=== PATIENT | male | born 1930 | race Caucasian/White ===

== ENCOUNTER 2016-03-28 12:54 | Inpatient (IN) | payer MEDICARE ==
[~2016-03-28] VITALS: Ht 172.7 cm; Wt 113.5 kg
[~2016-03-28 12:54] MED LIST: DONE5TAB14; DULO20 PO; LORTA5 PO; NAME5TAB2 PO
[2016-03-28 12:58] VITALS: BP 119/58; PULSE 92; RESP 20; TEMP 97.8; O2SAT 99
--- NOTE | 2016-03-28 13:20 | PD ---
HPI Chief Complaint: GI Complaint Time Seen by Provider: 13:20 Travel History International Travel<30 days: No Contact w/Intl Traveler<30days: No Traveled to known affect area: No History of Present Illness HPI 85-year-old male with history of glaucoma, peripheral neuropathy, anxiety, BPH, presents to emergency department for evaluation. Patient states for the last week he has been having some left-sided chest pain. He states if he "really thought about it" he noticed it there. He denies any recent illnesses fever or chills but when he woke up this morning he did not feel well. He had a small amount of diarrhea. He states couple hours later he had another "diarrhea attack." He states that he passed out on the way to the restroom but " recovered quickly." He then had a loose bowel movement that was mostly mary red blood. Patient states he has never had this happen before. He doesn't have a history of colitis or diverticulitis. He has had a colonoscopy within the last 6 months without any concerning findings. His daughter is with him and believes that the syncopal episode was because he is misusing his anxiolytics. She also believes that he he has not been honest about the bloody stool. I did not confront the patient on this. PFSH Past Medical History Medical History: Denies Significant Hx Social History Alcohol Use: No Tobacco Use: No Substance Use: No Allergies-Medications (Allergen,Severity, Reaction): Coded Allergies: No Known Allergies (Unverified , 03/28/16) Reported Meds & Prescriptions Reported Meds & Active Scripts Active Reported Lortab 5/325 Tab (Hydrocodone-Acetaminophen) Unknown Strength Tab Unknown Dose PO Q4H PRN Donepezil HCl (Donepezil Hydrochloride) Unknown Strength Tab Unknown Dose Cymbalta (Duloxetine HCl) Unknown Strength Cap Unknown Dose PO DAILY Namenda (Memantine) Unknown Strength Tab Unknown Dose PO BID Review of Systems Except as stated in HPI: all other systems reviewed are Neg Physical Exam Narrative GENERAL: Well-nourished male patient, lying in bed, speaking to me with his eyes closed, in no acute distress SKIN: Warm and dry. Pallor but warm HEAD: Atraumatic. Normocephalic. EYES: Pupils equal and round. No scleral icterus. No injection or drainage. ENT: No nasal bleeding or discharge. Mucous membranes pink and moist. NECK: Trachea midline. No JVD. CARDIOVASCULAR: Elevated rate and rhythm. No murmur appreciated. RESPIRATORY: No accessory muscle use. Clear to auscultation. Breath sounds equal bilaterally. GASTROINTESTINAL: Abdomen soft, non-tender, nondistended. Hepatic and splenic margins not palpable. MUSCULOSKELETAL: No obvious deformities. No clubbing. No cyanosis. No edema. NEUROLOGICAL: Awake and alert. No obvious cranial nerve deficits. Motor grossly within normal limits. Normal speech. Data Data Last Documented VS Vital Signs Date Time Temp Pulse Resp B/P Pulse Ox O2 Delivery O2 Flow Rate FiO2 03/28/16 12:58 97.8 92 20 119/58 99 Room Air Orders Electrocardiogram (03/28/16 13:13) Complete Blood Count With Diff (03/28/16 13:13) Comprehensive Metabolic Panel (03/28/16 13:13) Prothrombin Time / Inr (Pt) (03/28/16 13:18) Act Partial Throm Time (Ptt) (03/28/16 13:18) Urinalysis - C+S If Indicated (03/28/16 13:18) Type And Screen (03/28/16 13:18) Ckmb (Isoenzyme) Profile (03/28/16 13:18) Magnesium (Mg) (03/28/16 13:18) Troponin I (03/28/16 13:18) Chest, Single Ap (03/28/16 13:18) MDM Medical Decision Making Medical Screen Exam Complete: Yes Emergency Medical Condition: Yes Medical Record Reviewed: Yes Differential Diagnosis Colitis versus GI bleed versus hemorrhoids versus symptomatic anemia versus syncopal episode versus vasovagal response Narrative Course 85-year-old male presents to emergency department. Workup was initiated in triage. Once a medical bed becomes available, patient will be transferred and care assumed by that patient Condition: Stable Iman Zavala Mar 28, 2016 13:20
[2016-03-28 13:52] LABS: AUTOMATED NEUTROPHIL # 12.8 TH/MM3 (1.8-7.7); BASOPHIL # 0.1 TH/MM3 (0-0.2); BASOPHIL % 0.6 % (0.0-2.0); EOSINOPHIL % 0.3 % (0.0-4.0); HEMATOCRIT 38.5 % (39.0-51.0); HEMO FLAGS DIFF FINAL; LYMPH % 6.2 % (9.0-44.0); LYMPHOCYTE # 0.9 TH/MM3 (1.0-4.8); MEAN CELL VOLUME 85.3 FL (80.0-100.0); MEAN CORPUSCULAR HEMOGLOBIN 26.5 PG (27.0-34.0); MEAN CORPUSCULAR HGB CONC 31.1 % (32.0-36.0); NEUT % 90.9 % (16.0-70.0); PLATELET COUNT 225 TH/MM3 (150-450); RED BLOOD COUNT 4.52 MIL/MM3 (4.50-5.90); RED CELL DISTRIBUTION WIDTH 14.6 % (11.6-17.2); WHITE BLOOD COUNT 14.1 TH/MM3 (4.0-11.0)
[2016-03-28 14:06] LABS: APTT (PATIENT) 23.8 SEC (24.3-30.1); PROTHROMBIN TIME - PATIENT 11.3 SEC (9.8-11.6)
[2016-03-28 14:17] LABS: ANION GAP 11 MEQ/L (5-15); AST (GOT) 10 U/L (15-37); BICARBONATE 21.5 MEQ/L (21.0-32.0); BLOOD UREA NITROGEN 29 MG/DL (7-18); CHLORIDE 108 MEQ/L (98-107); GLOMERULAR FILTRATION RATE 38 ML/MIN (>89); POTASSIUM 4.7 MEQ/L (3.5-5.1); SODIUM (NA) 140 MEQ/L (136-145)
[2016-03-28 14:18] LABS: MAGNESIUM 2.3 MG/DL (1.5-2.5)
[2016-03-28 14:20] LABS: ALKALINE PHOSPHATASE 100 U/L (45-117); ALT (GPT) 14 U/L (12-78); TOTAL BILIRUBIN ADULT 0.7 MG/DL (0.2-1.0)
[2016-03-28 14:21] LABS: CREATINE KINASE 93 U/L (39-308)
--- NOTE | 2016-03-28 14:49 | PD ---
Data Data Last Documented VS Vital Signs Date Time Temp Pulse Resp B/P Pulse Ox O2 Delivery O2 Flow Rate FiO2 03/28/16 12:58 97.8 92 20 119/58 99 Room Air Orders Electrocardiogram (03/28/16 13:13) Complete Blood Count With Diff (03/28/16 13:13) Comprehensive Metabolic Panel (03/28/16 13:13) Prothrombin Time / Inr (Pt) (03/28/16 13:18) Act Partial Throm Time (Ptt) (03/28/16 13:18) Urinalysis - C+S If Indicated (03/28/16 13:18) Type And Screen (03/28/16 13:18) Ckmb (Isoenzyme) Profile (03/28/16 13:18) Magnesium (Mg) (03/28/16 13:18) Troponin I (03/28/16 13:18) Chest, Single Ap (03/28/16 13:18) Labs Laboratory Tests Test 03/28/16 03/28/16 13:20 13:30 Sodium Level 140 MEQ/L Potassium Level 4.7 MEQ/L Chloride Level 108 MEQ/L Carbon Dioxide Level 21.5 MEQ/L Anion Gap 11 MEQ/L Blood Urea Nitrogen 29 MG/DL Creatinine 1.73 MG/DL Estimat Glomerular Filtration 38 ML/MIN Rate Random Glucose 196 MG/DL Calcium Level 8.6 MG/DL Total Bilirubin 0.7 MG/DL Aspartate Amino Transf 10 U/L (AST/SGOT) Alanine Aminotransferase 14 U/L (ALT/SGPT) Alkaline Phosphatase 100 U/L Total Protein 6.0 GM/DL Albumin 3.2 GM/DL White Blood Count 14.1 TH/MM3 Red Blood Count 4.52 MIL/MM3 Hemoglobin 12.0 GM/DL Hematocrit 38.5 % Mean Corpuscular Volume 85.3 FL Mean Corpuscular Hemoglobin 26.5 PG Mean Corpuscular Hemoglobin 31.1 % Concent Red Cell Distribution Width 14.6 % Platelet Count 225 TH/MM3 Mean Platelet Volume 8.7 FL Neutrophils (%) (Auto) 90.9 % Lymphocytes (%) (Auto) 6.2 % Monocytes (%) (Auto) 2.0 % Eosinophils (%) (Auto) 0.3 % Basophils (%) (Auto) 0.6 % Neutrophils # (Auto) 12.8 TH/MM3 Lymphocytes # (Auto) 0.9 TH/MM3 Monocytes # (Auto) 0.3 TH/MM3 Eosinophils # (Auto) 0.0 TH/MM3 Basophils # (Auto) 0.1 TH/MM3 CBC Comment DIFF FINAL Differential Comment Prothrombin Time 11.3 SEC Prothromb Time International 1.0 RATIO Ratio Activated Partial 23.8 SEC Thromboplast Time Magnesium Level 2.3 MG/DL Total Creatine Kinase 93 U/L Troponin I LESS THAN 0.02 NG/ML Blood Type A POSITIVE Antibody Screen NEGATIVE MDM Supervised Visit with [facility]: Yes Narrative Course I, Dr. Alvares, have reviewed the advance practice practitioner's documentation and am in agreement, met with the patient face to face, made the diagnosis, and the medical decision making was done by me. See her note for further details. Briefly this is an 85-year-old male with history of iron deficiency anemia, neurofibromatosis, peripheral neuropathy, here for evaluation of diarrhea, hematochezia, and syncope. Patient reports having a couple episodes of diarrhea this morning. He was on his way to the restroom when he had a syncopal episode. He denies sustaining any injuries during this time. He denies having chest pain or dyspnea. He then went to the restroom and had a large bloody bowel movement. According to his records, the patient is seen primarily by Dr. Berry who recently retired. He has a history of iron deficiency anemia and GI bleed. Patient reports having a colonoscopy within the last 6 [address] surgeon [address] Garcia and reports that it was normal. No history of abdominal surgeries. He denies abdominal pain. No rectal pain. He is not on any antiplatelets or anticoagulants. On exam the patient is awake and alert. There are no focal neurologic findings. Abdominal exam is benign. Rectal exam shows heme positive brown stool, no mary blood, no masses, no hemorrhoids, no fissures. Vital signs show slight tachycardia with a heart rate of 92, blood pressure 119/58, pulse ox 99% on room air, oral temp of 97.8F. CBC shows WBC 14, hemoglobin 12, hematocrit 38.5, platelets 225 , neutrophils 90%. Patient's baseline H&H is around 14/45. BMP is remarkable for BUN 29, creatinine 1.73, GFR 38 which is around his baseline, random glucose 196. Cardiac enzymes are negative. Coags are normal. EKG shows sinus , rate 79, normal axis, normal intervals, no acute ischemic abnormality. Given syncopal episode with hematochezia and heme positive/brown stool on exam with a slightly lower hemoglobin than his baseline, the patient will be admitted for overnight observation for serial H&H and likely GI/colorectal consultation. Case discussed with hospitalist Dr. Kong who will admit the patient to his service. Diagnosis Primary Impression: Syncope Qualified Code: R55 - Syncope, unspecified syncope type Additional Impression: Hematochezia Admitting Information Admitting Physician Requests: Observation Condition: Stable Simba Alvares MD Mar 28, 2016 14:49
[2016-03-28] MEDS ORDERED: SODIUM CHLOR 0.9% 1000 ML INJ 1,000 ML IV SCH (15:06)
[2016-03-28] MEDS ORDERED: ONDANSETRON HCL 4 MG/2 ML VIAL IV PRN (15:15)
[2016-03-28] MEDS ORDERED: SODIUM CHLORIDE 0.9% FLUSH 5 ML FLUSH IV PRN (15:15)
[2016-03-28] MEDS ORDERED: ALLO300T2 PO (15:26)
[2016-03-28] MEDS ORDERED: AZOP1SUS EACH EYE (15:56)
[2016-03-28] MEDS ORDERED: PRED1SUS LEFT EYE (15:56)
[2016-03-28] MEDS ORDERED: POLY99.0 EACH EYE (15:56)
[2016-03-28] MEDS ORDERED: MAGN400T2 PO (15:56)
[2016-03-28] MEDS ORDERED: FERR325T PO (15:56)
[2016-03-28] MEDS ORDERED: DONE10TA7 PO (15:56)
[2016-03-28] MEDS ORDERED: [UNRECOGNIZED DRUG - OTHER] PO (15:56)
[2016-03-28] MEDS ORDERED: DICL1GEL TOPICAL (15:56)
[2016-03-28] MEDS ORDERED: OMEG100037 PO (15:56)
[2016-03-28] MEDS ORDERED: MULTTAB23 PO (15:56)
[2016-03-28] MEDS ORDERED: TRAV0.00 EACH EYE (15:56)
[2016-03-28] MEDS ORDERED: GABA300C5 PO (15:56)
[2016-03-28] MEDS ORDERED: COMB0.2S EACH EYE (15:56)
[2016-03-28] MEDS ORDERED: ALPR0.5T3 PO (15:56)
[2016-03-28] MEDS ORDERED: NORC5TAB PO (15:56)
[2016-03-28] MEDS ORDERED: CYMB60CA PO (15:56)
[2016-03-28] MEDS ORDERED: MEMA28CA PO (15:56)
[2016-03-28] MEDS ORDERED: LIPI20TA PO (15:56)
[2016-03-28] MEDS ORDERED: VITA100T5 PO (15:56)
[2016-03-28] MEDS ORDERED: ALBUAER3 INH (15:56)
[2016-03-28] MEDS ORDERED: CALC500T35 PO (15:56)
[2016-03-28] MEDS ORDERED: ASPI1TAB69 PO (15:56)
[2016-03-28] MEDS ORDERED: LOTE0.5S EACH EYE (15:56)
[2016-03-28] MEDS: PANTOPRAZOLE SODIUM 40 MG VIAL IV SCH (15:58)
--- NOTE | 2016-03-28 16:55 | RADRPT ---
EXAM DATE/TIME: 03/28/2016 14:30 [facility] COMPARISON: No previous studies available for comparison. INDICATIONS : Chest pain. Pt. states he has blood in stool, coughing up phlegm and fainting. MEDICAL HISTORY : None. SURGICAL HISTORY : None. ENCOUNTER: Initial ACUITY: 1 day PAIN SCORE: 0/10 LOCATION: Bilateral chest FINDINGS: The heart is normal in size. There are chronic interstitial changes within the pulmonary parenchyma. The visualized bony structures are grossly intact. CONCLUSION: 1. Chronic appearing interstitial changes. No acute abnormality identified. Eliud Roberts MD on March 28, 2016 at 15:37 Board Certified Radiologist. This report was verified electronically.
--- NOTE | 2016-03-28 17:31 | PD.CONS ---
HPI History of Present Illness This is a 85 year old male patient who came to the ER for evaluation of blood in stool. He woke up around 715am this morning and states that he had a normal bowel movement. Shortly after, he states he did not feel well and thought he would go have another bowel movement. He reports that he may have fainted or fell on the way. He believes that he did lose consciousness for a short time, but came to and then rushed to the bathroom to move his bowels. This time, he noticed that there was a large amount of red blood mixed within his stool. This alarmed him and therefore came to the ER for further evaluation. No nausea /vomiting, or heartburn. When asked about abdominal pain, he stated "lets just say no, it's not significant and I don't want to go over this again." He then reports that he has had an intermittent ache under his left rib cage that is more muscular skeletal. He does not take any blood thinners. He does not take advil or aleve. He was previously evaluated with EGD (11/07/10) gastritis in the antrum, normal EGD otherwise. Pathology with chronic gastropathy mild, negative for intestinal metaplasia, H. Pylori is negative. Colonoscopy (08/16/09 )---> cecum with normal ileocecal valve, no polyps, diverticular disease moderate with no inflammation, anorectal exam. He reports that he was also seen by Dr. Garcia about 6 months ago, but he does not know what he did. ( Anna Martinez) PFSH Past Medical History GERD Depression Anemia History of GI bleeding Gout Headache Hyperlipidemia lipidemia Glaucoma Osteoarthritis Von Recklinghausen's disease Hyperlipidemia Past Surgical History Cataract surgery EGD Colonoscopy Sigmoidoscopy (Anna Martinez) Coded Allergies: No Known Allergies (Unverified , 03/28/16) Medications Allergies Coded Allergies Type Severity Reaction Last Updated Verified No Known Allergies 03/28/16 No Active Scripts Medications Dose Route/Sig Days Date Category Lotemax Opth Drops (Loteprednol Etabonate) 0.5 % Soln 1 Drop EACH EYE QID PRN 03/28/16 Reported Proair Hfa 8.5 GM Inh (Albuterol Sulfate) 90 Mcg/Act Aer 2 Puff INH Q4-6H PRN 03/28/16 Reported Artificial Tears Opth Drops (Polyvinyl Alcohol) 1.4% Soln 1-2 Drop EACH EYE DIRECTED PRN 03/28/16 Reported [Redi-Calm] 1 Tab PO 1-2 TIMES A DAY PRN 03/28/16 Reported Aspirin 81 Mg Tabdr 81 Mg PO DAILY 03/28/16 Reported Namenda Xr (Memantine) 28 Mg Caper 28 Mg PO DAILY 03/28/16 Reported Multi For Him 50+ (Multiple Vitamins W/ Minerals) 1 Tab Tab 1 Tab PO DAILY 03/28/16 Reported Voltaren Topical (Diclofenac Topical) 1% Gel 1 Applic TOPICAL DIRECTED PRN 03/28/16 Reported Vitamin C (Ascorbic Acid) 100 Mg Tab 100 Mg PO DAILY 03/28/16 Reported Travatan Z Opth Drops (Travoprost) 0.004 % Soln 1 Drop EACH EYE HS 03/28/16 Reported Pred Forte Opth Drops (Prednisolone Acetate Opth Drops) 1% Susp 1 Drop LEFT EYE QID 03/28/16 Reported Magnesium Oxide 400 Mg Tab 400 Mg PO DAILY 03/28/16 Reported Lipitor (Atorvastatin Calcium) 20 Mg Tab 20 Mg PO DAILY 03/28/16 Reported [place] (Hydrocodone-Acetaminophen) 5-325 mg Tab 1 Tab PO Q6H PRN 03/28/16 Reported Gabapentin 300 Mg Cap 300 Mg PO TID 03/28/16 Reported Fish Oil 1000 mg ([place]-3 Fatty Acids) 1 Cap Cap 1,000 Mg PO DAILY 03/28/16 Reported Ferrous Sulfate 325 Mg Tab 325 Mg PO DAILY 03/28/16 Reported Donepezil 10 Mg Tab 10 Mg PO HS 03/28/[address] (Duloxetine HCl) 60 Mg Capdr 60 Mg PO DAILY 03/28/16 Reported Combigan Opth Drops (Brimonidine-Timolol Opth Drops) 0.2-0.5% Soln 1 Drop EACH EYE Q12HR 03/28/16 Reported Calcium (Oyster Shell) 500 Mg Tab 500 Mg PO DAILY 03/28/16 Reported Azopt Opth Drops (Brinzolamide) 1% Susp 1 Drop EACH EYE TID 03/28/16 Reported Alprazolam 0.5 Mg Tab 0.5 Mg PO Q6H PRN 03/28/16 Reported Allopurinol 300 Mg Tab 300 Mg PO DAILY 03/28/16 Reported Family History He denies any family hx of esophageal, gastric, or colorectal cancer Social History No tobacco, ETOH, or illicit drug use. (MartinezAnna) Review of Systems Constitutional: COMPLAINS OF: Fatigue, DENIES: Change in appetite Respiratory: DENIES: Shortness of breath Cardiovascular: DENIES: Chest pain Gastrointestinal: COMPLAINS OF: Abdominal pain, Bloody stools, Diarrhea, DENIES: Black stools, Constipation, Nausea, Vomiting, Anorexia, Swelling of Abdomen, Heartburn, Hematemesis Musculoskeletal: COMPLAINS OF: Joint pain Integumentary: DENIES: Abnormal pigmentation Hematologic/lymphatic: DENIES: Bruising Neurologic: DENIES: Headache Psychiatric: DENIES: Confusion (Anna Martinez) GI Exam Vitals I&O Vital Signs Date Time Temp Pulse Resp B/P Pulse Ox O2 Delivery O2 Flow Rate FiO2 03/28/16 12:58 97.8 92 20 119/58 99 Room Air Laboratory Test 03/28/16 03/28/16 13:20 13:30 Sodium Level 140 MEQ/L Potassium Level 4.7 MEQ/L Chloride Level 108 MEQ/L Carbon Dioxide Level 21.5 MEQ/L Anion Gap 11 MEQ/L Blood Urea Nitrogen 29 MG/DL Creatinine 1.73 MG/DL Estimat Glomerular Filtration 38 ML/MIN Rate Random Glucose 196 MG/DL Calcium Level 8.6 MG/DL Total Bilirubin 0.7 MG/DL Aspartate Amino Transf 10 U/L (AST/SGOT) Alanine Aminotransferase 14 U/L (ALT/SGPT) Alkaline Phosphatase 100 U/L Total Protein 6.0 GM/DL Albumin 3.2 GM/DL White Blood Count 14.1 TH/MM3 Red Blood Count 4.52 MIL/MM3 Hemoglobin 12.0 GM/DL Hematocrit 38.5 % Mean Corpuscular Volume 85.3 FL Mean Corpuscular Hemoglobin 26.5 PG Mean Corpuscular Hemoglobin 31.1 % Concent Red Cell Distribution Width 14.6 % Platelet Count 225 TH/MM3 Mean Platelet Volume 8.7 FL Neutrophils (%) (Auto) 90.9 % Lymphocytes (%) (Auto) 6.2 % Monocytes (%) (Auto) 2.0 % Eosinophils (%) (Auto) 0.3 % Basophils (%) (Auto) 0.6 % Neutrophils # (Auto) 12.8 TH/MM3 Lymphocytes # (Auto) 0.9 TH/MM3 Monocytes # (Auto) 0.3 TH/MM3 Eosinophils # (Auto) 0.0 TH/MM3 Basophils # (Auto) 0.1 TH/MM3 CBC Comment DIFF FINAL Differential Comment Prothrombin Time 11.3 SEC Prothromb Time International 1.0 RATIO Ratio Activated Partial 23.8 SEC Thromboplast Time Magnesium Level 2.3 MG/DL Total Creatine Kinase 93 U/L Troponin I LESS THAN 0.02 NG/ML Blood Type A POSITIVE Antibody Screen NEGATIVE Physical Examination HEENT: Pupils round and reactive to light; normocephalic; atraumatic; no jaundice. Throat is clear. NECK: Neck is supple, no JVD, no lymphadenopathy. CHEST: Chest is clear to auscultation and percussion. CARDIAC: Regular rate and rhythm with no murmur gallop or rubs. ABDOMEN: Soft, nondistended, nontender; no hepatosplenomegaly; bowel sounds are present in all four quadrants. EXTREMITIES: No clubbing, cyanosis, or edema. SKIN: Normal; no rash; no jaundice. SHOWER ENCLOSURE INSTALLER: No focal deficits; alert and oriented times three. (Anna Martinez) Assessment and Plan Plan ASSESSMENT: - GIB, Hematochezia. Sudden onset of bloody diarrhea earlier this am. Denies n /v/abdominal pain. Denies the use of NSAIDs. EGD (11/07/10) gastritis in the antrum, normal EGD otherwise. Pathology with chronic gastropathy mild, negative for intestinal metaplasia, H. Pylori is negative. Colonoscopy (08/16)---> cecum with normal ileocecal valve, no polyps, diverticular disease moderate with no inflammation, anorectal exam. He reports that he was also seen by Dr. Garcia about 6 months ago, but he does not know what he did. He denies any hx of GIB but this is noted in the EMR. HH 12.0/38.5. PPI - Anemia, acute blood loss. 12.0/38.5. - REENA. Creat. 1.73. - Fall/Syncopal episode. Pt unsure if he tripped or passed out but states he quickly came to. Per primary - Depression, Gout, Hyperlipidemia, Von Recklinghausen's disease (In record) per primary PLAN: - Plan for egd/colonoscopy in am - Obtain consents - NPO after MN - Golytely prep - PPI - Monitor HH - Transfuse as ncessary - Supportive care - Further recommendations to follow based on results of above - Pt seen and examined by Dr. Cao and myself and this note is written on her behalf (Anna Martinez) Physician Comments seen, examined agree with above (Annalee Cao MD) Anna Martinez Mar 28, 2016 17:31 Annalee Cao MD Mar 28, 2016 19:22
--- NOTE | 2016-03-28 18:20 | RADRPT ---
EXAM DATE/TIME: 03/28/2016 16:46 [facility] COMPARISON: No previous studies available for comparison. INDICATIONS : Syncope. MEDICAL HISTORY : Glaucoma. Anemia. SURGICAL HISTORY : Denies significant surgical history. ENCOUNTER: Initial ACUITY: 1 day PAIN SCORE: 0/10 LOCATION: Bilateral neck PEAK SYSTOLIC VELOCITIES (cm/sec): ICA/CCA RATIO: Right: 0.8 Left: 0.6 ICA: Right: 82 Left: 75 CCA: Right: 110 Left: 134 ECA: Right: 112 Left: 81 VERTEBRAL: Right: 48 antegrade Left: 61 antegrade Elevated flow velocities and ICA/CCA ratios have been found to correlate with increased degrees of vessel stenosis, calculated as percentage of diameter relative to a normal segment of distal ICA/CCA FINDINGS: RIGHT CAROTID: No significant stenosis is visualized. Mild plaque is present. The waveforms are within normal limits . LEFT CAROTID: No significant stenosis is visualized. Mild plaque is present. The waveforms are within normal limit s. VERTEBRAL ARTERIES: Antegrade flow is seen in both vertebral arteries. MISCELLANEOUS: None. CONCLUSION: Mild bilateral plaque with no evidence of stenosis. Isaac Nicole MD on March 28, 2016 at 18:17 Board Certified Radiologist. This report was verified electronically.
--- NOTE | 2016-03-28 18:26 | HHI.HP ---
[facility] Physician Kinga Allen MD Admission Diagnosis syncope, hematochezia Diagnoses: Chief Complaint: Bloody stool Travel History International Travel<30 Days: No Contact w/Intl Traveler <30 Da: No Traveled to Known Affected Are: No History of Present Illness This is an 85-year-old male patient with past medical history which includes arthritis, anxiety, cervical stenosis, glaucoma, hyperlipidemia, iron deficiency anemia. Patient presents to the emergency department today he reports this morning when he woke up felt anxious had a bowel movement and went back to bed. Patient woke up again an hour and a half later and on his chaparro to get to the bathroom reports he's not sure if he tripped and fell or passed out. Patient denies loss of consciousness denies hitting his head reports he did hit his right hand small skin tear present. At that time patient noticed he was having incontinent stool therefore proceeded to the toilet which he had bloody bowel movement. Patient reports that there was bright red blood. Patient denies nausea or vomiting does report mild diaphoresis during the episode. Patient then ate breakfast and proceeded to the emergency department for further evaluation and treatment. Patient denies feeling lightheaded or dizzy. Patient denies prior history of GI bleed reports his last colonoscopy was possibly 6 months ago he believes with Dr. Garcia and believes the results were normal. Denies chest pain shortness of breath nausea vomiting fevers chills cough congestion. Review of Systems Other All other systems reviewed and negative except as mentioned in history of present illness. Past Family Social History Past Medical History arthritis, anxiety, cervical stenosis, glaucoma, hyperlipidemia, iron deficiency anemia Past Surgical History Cataract surgery Colonoscopy Reported Medications Lotemax Opth Drops (Loteprednol Etabonate) 0.5 % Soln 1 Drop EACH EYE QID PRN Proair Hfa 8.5 GM Inh (Albuterol Sulfate) 90 Mcg/Act Aer 2 Puff INH Q4-6H PRN Artificial Tears Opth Drops (Polyvinyl Alcohol) 1.4% Soln 1-2 Drop EACH EYE DIRECTED PRN [Redi-Calm] 1 Tab PO 1-2 TIMES A DAY PRN Aspirin 81 Mg Tabdr 81 Mg PO DAILY Namenda Xr (Memantine) 28 Mg Caper 28 Mg PO DAILY Multi For Him 50+ (Multiple Vitamins W/ Minerals) 1 Tab Tab 1 Tab PO DAILY Voltaren Topical (Diclofenac Topical) 1% Gel 1 Applic TOPICAL DIRECTED PRN Vitamin C (Ascorbic Acid) 100 Mg Tab 100 Mg PO DAILY Travatan Z Opth Drops (Travoprost) 0.004 % Soln 1 Drop EACH EYE HS Pred Forte Opth Drops (Prednisolone Acetate Opth Drops) 1% Susp 1 Drop LEFT EYE QID Magnesium Oxide 400 Mg Tab 400 Mg PO DAILY Lipitor (Atorvastatin Calcium) 20 Mg Tab 20 Mg PO DAILY [place] (Hydrocodone-Acetaminophen) 5-325 mg Tab 1 Tab PO Q6H PRN Gabapentin 300 Mg Cap 300 Mg PO TID Fish Oil 1000 mg ([place]-3 Fatty Acids) 1 Cap Cap 1,000 Mg PO DAILY Ferrous Sulfate 325 Mg Tab 325 Mg PO DAILY Donepezil 10 Mg Tab 10 Mg PO HS Cymbalta DR (Duloxetine HCl) 60 Mg Capdr 60 Mg PO DAILY Combigan Opth Drops (Brimonidine-Timolol Opth Drops) 0.2-0.5% Soln 1 Drop EACH EYE Q12HR Calcium (Oyster Shell) 500 Mg Tab 500 Mg PO DAILY Azopt Opth Drops (Brinzolamide) 1% Susp 1 Drop EACH EYE TID Alprazolam 0.5 Mg Tab 0.5 Mg PO Q6H PRN Allopurinol 300 Mg Tab 300 Mg PO DAILY Allergies: Coded Allergies: No Known Allergies (Unverified , 03/28/16) Active Ordered Medications Current Medications Medications (Trade) Dose Ordered Sig/Carrie Route Start Time Stop Time Status Last Admin (NS 1000 ml Inj) 1,000 ml @ 100 mls/hr Q10H IV 03/28/16 15:06 03/29/16 01:05 03/28/16 15:58 (NS Flush) 2 ml UNSCH PRN IV 03/28/16 15:15 (NS Flush) 2 ml BID IV 03/28/16 21:00 (Zofran Inj) 4 mg Q6H PRN IV 03/28/16 15:15 (Protonix Inj) 40 mg DAILY IV 03/28/16 15:15 03/28/16 15:58 Family History He denies any family hx of esophageal, gastric, or colorectal cancer Father of an MD in his 80s Mother secondary to Alzheimer's dementia Social History Patient reports he quit smoking in 1991 Patient reports he drinks loss of wine each evening with his meal Physical Exam Vital Signs Vital Signs Date Time Temp Pulse Resp B/P Pulse Ox O2 Delivery O2 Flow Rate FiO2 03/28/16 12:58 97.8 92 20 119/58 99 Room Air Physical Exam GENERAL: This is a well-nourished, well-developed patient, in no apparent distress. SKIN: Skin tear right hand dorsal aspect and did present. HEAD: Atraumatic. Normocephalic. No temporal or scalp tenderness. EYES: Extraocular motions intact. No scleral icterus. No injection or drainage. CARDIOVASCULAR: Regular rate and rhythm without murmurs, gallops, or rubs. RESPIRATORY: Clear to auscultation. Breath sounds equal bilaterally. No wheezes , rales, or rhonchi. GASTROINTESTINAL: Abdomen soft, non-tender, nondistended. No guarding. MUSCULOSKELETAL: Extremities without clubbing, cyanosis, or edema. No joint tenderness, effusion, or edema noted. No calf tenderness. Negative Homans sign bilaterally. NEUROLOGICAL: Awake and alert. No focal deficits appreciated. Motor and sensory grossly within normal limits. Five out of 5 muscle strength in all muscle groups. Normal speech. Laboratory Laboratory Tests Test 03/28/16 03/28/16 13:20 13:30 Sodium Level 140 Potassium Level 4.7 Chloride Level 108 Carbon Dioxide Level 21.5 Anion Gap 11 Blood Urea Nitrogen 29 Creatinine 1.73 Estimat Glomerular Filtration 38 Rate Random Glucose 196 Calcium Level 8.6 Total Bilirubin 0.7 Aspartate Amino Transf 10 (AST/SGOT) Alanine Aminotransferase 14 (ALT/SGPT) Alkaline Phosphatase 100 Total Protein 6.0 Albumin 3.2 White Blood Count 14.1 Red Blood Count 4.52 Hemoglobin 12.0 Hematocrit 38.5 Mean Corpuscular Volume 85.3 Mean Corpuscular Hemoglobin 26.5 Mean Corpuscular Hemoglobin 31.1 Concent Red Cell Distribution Width 14.6 Platelet Count 225 Mean Platelet Volume 8.7 Neutrophils (%) (Auto) 90.9 Lymphocytes (%) (Auto) 6.2 Monocytes (%) (Auto) 2.0 Eosinophils (%) (Auto) 0.3 Basophils (%) (Auto) 0.6 Neutrophils # (Auto) 12.8 Lymphocytes # (Auto) 0.9 Monocytes # (Auto) 0.3 Eosinophils # (Auto) 0.0 Basophils # (Auto) 0.1 CBC Comment DIFF FINAL Differential Comment Prothrombin Time 11.3 Prothromb Time International 1.0 Ratio Activated Partial 23.8 Thromboplast Time Magnesium Level 2.3 Total Creatine Kinase 93 Troponin I LESS THAN 0.02 Blood Type A POSITIVE Antibody Screen NEGATIVE Result Diagram: 03/28/16 1330 03/28/16 1320 Imaging Last Impressions Chest X-Ray 03/28/16 1318 Signed Impressions: Service Date/Time: Monday, March 28, 2016 14:30 - CONCLUSION: 1. Chronic appearing interstitial changes. No acute abnormality identified. Eliud Roberts MD Assessment and Plan Assessment and Plan gThis is an 85-year-old male patient with past medical history which includes arthritis, anxiety, cervical stenosis, glaucoma, hyperlipidemia, iron deficiency anemia. Process emergency department with reports of mary red blood per rectum. Hemoglobin 12.0 upon arrival. Per ER stool brown but Hemoccult positive GI bleed Anemia hemoglobin 12.1 appears like baseline is around 14 MCV 85.3 Continue Protonix Serial H&H and Consult GI Mechanical fall/rectal bleeding episode Ultrasound carotid arteries Continuous telemetry monitoring Acute on chronic kidney disease creatinine elevated 1.73 dehydration Continue IV fluids Recheck in a.m. Mild leukocytosis white blood cell count 14.1 Recheck in a.m. Asymptomatic afebrile SCDs for DVT prophylaxis for chemical DVT prophylaxis in light of GI bleed Discussed with ER visit provider, RN and patient Written by Pamela Jacobo, acting as scribe for Dr. Kong on 03/28/16 at 18:26. The documentation accurately reflects the work performed [id number] by me on 03/28/16 at 1826. Physician Certification 2 Midnight Certification Type: Admission for Inpatient Services Order for Inpatient Services The services are ordered in accordance with Medicare regulations or non- Medicare payer requirements, as applicable. In the case of services not specified as inpatient-only, they are appropriately provided as inpatient services in accordance with the 2-midnight benchmark. Estimated LOS (days): 3 days is the estimated time the patient will need to remain in the hospital, assuming treatment plan goals are met and no additional complications. Post-Hospital Plan: Home Pamela Jacobo Mar 28, 2016 18:26 Nena Kong MD Mar 28, 2016 21:53
[2016-03-28] MEDS ORDERED: ACETAMINOPHEN/HYDROcodone 325 MG/5 MG TAB PO PRN (18:30)
[2016-03-28] MEDS ORDERED: LOTEPREDNOL OPTH EACH EYE PRN (18:30)
[2016-03-28] MEDS ORDERED: PEG (High)/E-LYTE SOLN 4000 ML BTL PO ONE (19:00)
[2016-03-28 19:24] LABS: HEMATOCRIT 35.1 % (39.0-51.0); REVIEW FLAG FINAL
[2016-03-28 19:43] VITALS: BP 141/63; PULSE 80; RESP 20; O2SAT 99
[2016-03-28] MEDS: ALPRAZolam 0.5 MG TAB PO PRN (20:14)
[2016-03-28] MEDS ORDERED: LOTEPREDNOL EACH EYE PRN (20:30)
[2016-03-28] MEDS ORDERED: NON-FORMULARY DRUG (Travoprost Opth Drops (Travatan Z Opth Drops) 1 DROP) EACH EYE SCH (21:00)
[2016-03-28] MEDS ORDERED: PT:COMBIGAN OPTH SOL EACH EYE SCH (21:00)
[2016-03-28] MEDS ORDERED: NON-FORMULARY DRUG (Brimonidine-Timolol Opth Drops (Combigan Opth Drops) 1 DROP) EACH EYE SCH (21:00)
[2016-03-28] MEDS ORDERED: DONEPEZIL HCL 5 MG TAB PO SCH (21:00)
[2016-03-28] MEDS: LATANOPROST 0.005% OPHT SOLN 2.5 ML BTL EACH EYE SCH ×2 (21:00→21:02)
[2016-03-28] MEDS: prednisoLONE ACETATE 1% OPHT SUSP 5 ML BTL LEFT EYE SCH ×2 (21:00→21:01)
[2016-03-28] MEDS: SODIUM CHLORIDE 0.9% FLUSH 5 ML FLUSH IV SCH (21:03)
[2016-03-28] MEDS: BRINZOLAMIDE EACH EYE SCH (22:27)
[2016-03-28] MEDS: PT:COMBIGAN OPTH SOL EACH EYE SCH (22:29)
[2016-03-28] MEDS ORDERED: TAMS0.4C4 PO (23:57)
[2016-03-29 00:21] VITALS: BP 120/70; PULSE 78; RESP 20; TEMP 98.6; O2SAT 95
[2016-03-29] MEDS ORDERED: ACETAMINOPHEN/HYDROcodone 325 MG/5 MG TAB PO PRN (01:00)
[2016-03-29 03:28] LABS: AUTOMATED NEUTROPHIL # 14.5 TH/MM3 (1.8-7.7); BASOPHIL # 0.1 TH/MM3 (0-0.2); BASOPHIL % 0.4 % (0.0-2.0); HEMATOCRIT 35.1 % (39.0-51.0); HEMO FLAGS DIFF FINAL; LYMPH % 8.8 % (9.0-44.0); LYMPHOCYTE # 1.5 TH/MM3 (1.0-4.8); MEAN CELL VOLUME 83.6 FL (80.0-100.0); MEAN CORPUSCULAR HEMOGLOBIN 26.2 PG (27.0-34.0); MEAN CORPUSCULAR HGB CONC 31.4 % (32.0-36.0); MONO % 3.8 % (0.0-8.0); PLATELET COUNT 239 TH/MM3 (150-450); RED BLOOD COUNT 4.19 MIL/MM3 (4.50-5.90); RED CELL DISTRIBUTION WIDTH 14.3 % (11.6-17.2); WHITE BLOOD COUNT 16.7 TH/MM3 (4.0-11.0)
[2016-03-29] MEDS: ALPRAZolam 0.5 MG TAB PO PRN (03:30)
[2016-03-29] MEDS: TAMSULOSIN HCL 0.4 MG CAP PO SCH ×2 (03:30→11:30)
[2016-03-29 03:50] LABS: BICARBONATE 22.8 MEQ/L (21.0-32.0); POTASSIUM 4.3 MEQ/L (3.5-5.1)
[2016-03-29 04:09] VITALS: BP 135/83; PULSE 80; RESP 20; TEMP 97.6; O2SAT 95
[2016-03-29 08:00] VITALS: BP 130/71; PULSE 95; RESP 18; TEMP 98.3; O2SAT 93
[2016-03-29 08:20] VITALS: BP 130/71; PULSE 95; RESP 18; TEMP 98.3; O2SAT 93
[2016-03-29] MEDS ORDERED: ALLOPURINOL 300 MG TAB PO SCH (09:00)
[2016-03-29] MEDS ORDERED: ATORVASTATIN 20 MG TAB PO SCH (09:00)
[2016-03-29] MEDS ORDERED: [UNRECOGNIZED DRUG - OTHER] PO SCH (09:00)
[2016-03-29] MEDS ORDERED: NON-FORMULARY DRUG (Brinzolamide Opth Drops (Azopt Opth Drops) 1 DROP) EACH EYE SCH (09:00)
[2016-03-29] MEDS ORDERED: BRINZOLAMIDE EACH EYE SCH (09:00)
[2016-03-29] MEDS ORDERED: NON-FORMULARY DRUG (Memantine Er (Namenda Xr) 28 MG) PO SCH (09:00)
[2016-03-29] MEDS ORDERED: FERROUS SULFATE 325 MG (65 MG ELEMENTAL IRON) TAB PO SCH (09:00)
[2016-03-29] MEDS ORDERED: PROPOFOL 200 MG/20 ML AMP IV ONE (09:00)
[2016-03-29] MEDS: prednisoLONE ACETATE 1% OPHT SUSP 5 ML BTL LEFT EYE SCH ×2 (09:00→13:00)
[2016-03-29] MEDS ORDERED: DULoxetine HCl DR 60 MG CAP PO SCH (09:00)
[2016-03-29 11:27] LABS: HEMATOCRIT 29.4 % (39.0-51.0); REVIEW FLAG FINAL
[2016-03-29] MEDS: PT:COMBIGAN OPTH SOL EACH EYE SCH (11:29)
[2016-03-29] MEDS: BRINZOLAMIDE EACH EYE SCH ×2 (11:29→13:00)
[2016-03-29] MEDS: GABAPENTIN 300 MG CAP PO SCH ×2 (11:30→13:00)
[2016-03-29] MEDS: SODIUM CHLORIDE 0.9% FLUSH 5 ML FLUSH IV SCH (11:31)
[2016-03-29] MEDS: PANTOPRAZOLE SODIUM 40 MG VIAL IV SCH (11:31)
[2016-03-29 12:03] VITALS: BP 124/59; PULSE 65; RESP 20; TEMP 97.9; O2SAT 94
[2016-03-29] MEDS ORDERED: POLY17S PO (13:19)
[2016-03-29] MEDS ORDERED: PROT40TA PO (13:19)
[2016-03-29] MEDS ORDERED: LACT10SO PO (13:19)
--- NOTE | 2016-03-29 13:20 | HHI.DCPOC ---
Discharge Care Plan Diagnosis: (1) Hematochezia Goals to Promote Your Health * To prevent worsening of your condition and complications * To maintain your health at the optimal level Directions to Meet Your Goals Take your medications as prescribed Follow your dietary instruction Follow activity as directed Keep your appointments as scheduled Take your immunizations and boosters as scheduled If your symptoms worsen call your PCP, if no PCP go to Urgent Care Center or Emergency Room Smoking is Dangerous to Your Health. Avoid second hand smoke Call the 24-hour hour crisis hotline for domestic abuse at Nena Kong MD Mar 29, 2016 13:20
--- NOTE | 2016-03-29 13:23 | HHI.PR ---
Subjective Remarks Patient reports that he is feeling well. Tolerated lunch. Requesting to go home. No further bleeding from the rectum. Status post panendoscopy. He denies lightheadedness or heart palpitations. No chest pain or shortness of breath. Objective Vitals Vital Signs Date Time Temp Pulse Resp B/P Pulse Ox O2 Delivery O2 Flow Rate FiO2 03/29/16 12:03 97.9 65 20 124/59 94 03/29/16 10:17 82 16 135/53 97 03/29/16 10:10 82 16 124/56 95 03/29/16 10:02 98.1 83 16 135/51 94 03/29/16 08:20 98.3 95 18 130/71 93 03/29/16 08:00 98.3 95 18 130/71 93 03/29/16 04:36 14 03/29/16 04:09 97.6 80 20 135/83 95 03/29/16 00:21 98.6 78 20 120/70 95 03/28/16 19:43 80 20 141/63 99 Room Air I/O 03/28/16 03/28/16 03/28/16 03/29/16 03/29/16 03/29/16 07:00 15:00 23:00 07:00 15:00 23:00 Intake Total 50 ml Balance 50 ml Intake Other 50 ml Result Diagram: 03/29/16 1056 03/29/16 0316 Imaging Last Impressions Chest X-Ray 03/28/16 1318 Signed Impressions: Service Date/Time: Monday, March 28, 2016 14:30 - CONCLUSION: 1. Chronic appearing interstitial changes. No acute abnormality identified. Eliud Roberts MD Carotid Artery Ultrasound 03/28/16 0000 Signed Impressions: Service Date/Time: Monday, March 28, 2016 16:46 - CONCLUSION: Mild bilateral plaque with no evidence of stenosis. Isaac Nicole MD Objective Remarks GENERAL: This is a well-nourished, well-developed patient, in no apparent distress. CARDIOVASCULAR: Normal rate and regular rhythm without murmurs, gallops, or rubs. RESPIRATORY: Good respiratory efforts. Breath sounds equal and clear to auscultation bilaterally. GASTROINTESTINAL: Abdomen soft, non-tender, non-distended. Normal active bowel sounds MUSCULOSKELETAL: Extremities without cyanosis, or edema. NEURO: Alert & Oriented x4 to person, place, time, situation. Moves all ext x4 PSYCH: Appropriate mood and affect. A/P Assessment and Plan 85-year-old male presented to the emergency room after an episode of hematochezia. GI bleed: Patient did have a drop in his hemoglobin from 12 to 9.4 but remained asymptomatic. He was evaluated by GI and underwent panendoscopy. Patient was found to have Gastritis, hiatal hernia, internal and external hemorrhoids - Patient will continue on Protonix and stool softeners. He will follow up outpatient with his GI doctor. Fall: Based on the history, appears to have been a mechanical fall. He is a poor historian. He does not remember losing any consciousness. Ultrasound carotid arteries Continuous telemetry monitoring was unrevealing. Acute on chronic kidney disease creatinine elevated 1.73 secondary to dehydration. The patient was given IV fluid. He is advised to continue with aggressive oral hydration. Patient is discharged in stable condition. He states that he will follow-up with his GI doctors outpatient. Medications per med rec Diet: Heart healthy Activities: Regular as tolerated Follow-up with GI and PCP Nena Kong MD Mar 29, 2016 13:23
[2016-03-29 16:00] VITALS: PULSE 95
--- NOTE | 2016-03-29 16:10 | EKG ---
Date Performed: 03/28/2016 Time Performed: 13:56:04 PTAGE: 85 years EKG: Sinus rhythm NORMAL ECG NO PREVIOUS TRACING DOCTOR: Ignacio Willson Interpretating Date/Time 03/29/2016 16:09:58
[2016-03-30] MEDS ORDERED: POLYETHYLENE GLYCOL 17 GM PKG PO SCH (09:00)
[2016-03-30] MEDS ORDERED: LACTULOSE SYRUP 20 GM/30 ML CUP PO SCH (09:00)
[2016-04-13] MEDS ORDERED: TOPA25TA8 PO (12:04)
[2016-04-17] MEDS ORDERED: ALBUAER3 INH (12:20)
[2016-04-25] MEDS ORDERED: ALBUTEROL INH (17:54)
[2016-04-26] MEDS ORDERED: ALBUTEROL INH (13:11)
[2016-05-11] MEDS ORDERED: TOPA25TA8 PO (16:38)
[2016-05-16] MEDS ORDERED: BILB100C PO (14:46)
== END 2016-03-29 18:24 | disposition home or self-care (01) | DRG 378 ==
LOC: NEPC 12:54 → NEDA 14:57 → OBSVTOIN 15:11 → NEPHCDU 22:40
PROVIDERS: ADMIT Family Medicine; ATTEND Family Medicine
PROC: 0DB68ZX Excision of Stomach, Via Natural or Artificial Opening Endoscopic, Diagnostic (ICD-10-PCS; principal; 2016-03-29 08:24)
PROC: 0DJD8ZZ Inspection of Lower Intestinal Tract, Via Natural or Artificial Opening Endoscopic (ICD-10-PCS; 2016-03-29 08:24)
DX: K92.1 Melena (principal); D62 Acute posthemorrhagic anemia; N17.9 Acute kidney failure, unspecified; G62.9 Polyneuropathy, unspecified; E86.0 Dehydration; M48.02 Spinal stenosis, cervical region; Q85.01 Neurofibromatosis, type 1; D50.9 Iron deficiency anemia, unspecified; H40.9 Unspecified glaucoma; N40.0 Benign prostatic hyperplasia without lower urinary tract symptoms; E78.5 Hyperlipidemia, unspecified; M19.90 Unspecified osteoarthritis, unspecified site; N18.9 Chronic kidney disease, unspecified; D72.829 Elevated white blood cell count, unspecified; K21.9 Gastro-esophageal reflux disease without esophagitis; M10.9 Gout, unspecified; K44.9 Diaphragmatic hernia without obstruction or gangrene; K29.50 Unspecified chronic gastritis without bleeding; K57.30 Diverticulosis of large intestine without perforation or abscess without bleeding; K64.8 Other hemorrhoids; K64.4 Residual hemorrhoidal skin tags; F32.9 Major depressive disorder, single episode, unspecified; F41.9 Anxiety disorder, unspecified; W19.XXXA Unspecified fall, initial encounter; Z87.891 Personal history of nicotine dependence
CPT/HCPCS: 71010; 80048; 80053; 82550; 83735; 84484; 85014; 85018; 85025; 85610; 85730; 86850; 86900; 86901; 88305; 88312; 93005; 93880; C9113; J7030

== ENCOUNTER → 2016-05-23 | Outpatient (CLI) | payer MEDICARE ==
[~2016-05-23] MED LIST changes: +ALBUTEROL INH; +ALLO300T2 PO; +ALPR0.5T3 PO; +ASPI1TAB69 PO; +AZOP1SUS EACH EYE; +BILB100C PO; +CALC500T35 PO; +COMB0.2S EACH EYE; +CYMB60CA PO; +DICL1GEL TOPICAL; +DONE10TA7 PO; -DONE5TAB14; -DULO20 PO; +FERR325T PO; +GABA300C5 PO; +LACT10SO PO; +LIPI20TA PO; -LORTA5 PO; +MAGN400T2 PO; +MEMA28CA PO; +MULTTAB23 PO; -NAME5TAB2 PO; +NORC5TAB PO; +OMEG100037 PO; +POLY17S PO; +PROT40TA PO; +TAMS0.4C4 PO; +TOPA25TA8 PO; +TRAV0.00 EACH EYE; +VITA100T5 PO; +[UNRECOGNIZED DRUG - OTHER] PO
== END ==
LOC: ELAB 09:49
PROVIDERS: ATTEND Urology
DX: Z12.5 Encounter for screening for malignant neoplasm of prostate (principal)
CPT/HCPCS: 36415; G0103

== ENCOUNTER → 2017-04-22 | Outpatient (CLI) | payer MEDICARE ==
[~2017-04-22] MED LIST changes: +ALBUAER3 INH; +ASCO100029; -ASPI1TAB69 PO; +ASPI81TA81; -BILB100C PO; +BILB30CA PO; +CALC12502 PO; -CALC500T35 PO; +CETI-1 PO; -DICL1GEL TOPICAL; +DICL1GEL7 TOPICAL; -FERR325T PO; +FERR325T18 PO; +FERR325T72 PO; +FLUT1SPR5 EACH NARE; +MIRA3350 PO; +MULT1TAB PO; -OMEG100037 PO; +OMEGCAP29 PO; +TAMS5CAP PO; -TOPA25TA8 PO; +TOPI25 PO; -VITA100T5 PO
[2017-04-22 09:26] LABS: HEMATOCRIT 42.1 % (39.0-51.0); HEMOGLOBIN 13.8 GM/DL (13.0-17.0); MEAN CELL VOLUME 82.6 FL (80.0-100.0); MEAN CORPUSCULAR HEMOGLOBIN 27.1 PG (27.0-34.0); MEAN CORPUSCULAR HGB CONC 32.8 % (32.0-36.0); PLATELET COUNT 171 TH/MM3 (150-450); RED BLOOD COUNT 5.09 MIL/MM3 (4.50-5.90)
[2017-04-22 09:33] LABS: PROTHROMBIN TIME - PATIENT 10.6 SEC (9.8-11.6)
[2017-04-22 09:51] LABS: BICARBONATE 26.7 MEQ/L (21.0-32.0); CREATININE 1.78 MG/DL (0.60-1.30)
[2017-04-22 09:52] LABS: CALCIUM 9.1 MG/DL (8.5-10.1)
[2017-04-22 12:46] LABS: BILIRUBIN, URINE NEG (NEG); BLOOD, URINE NEG (NEG); GLUCOSE,URINE NEG (NEG); HYALINE CAST, URINE 1 /lpf (RARE); KETONE, URINE NEG (NEG); MUCUS URINE FEW /lpf (OCC); NITRITE,URINE NEG (NEG); PH, URINE 5.5 (5.0-8.5); URINE COLOR YELLOW (YELLW/STRAW); URINE LEUKOCYTE ESTERASE TRACE (NEG)
--- NOTE | 2017-04-22 22:51 | EKG ---
Date Performed: 04/22/2017 Time Performed: 09:15:35 PTAGE: 86 years EKG: SINUS BRADYCARDIA BORDERLINE ECG NO PREVIOUS TRACING DOCTOR: Naveen Jaimes Interpretating Date/Time 04/22/2017 22:46:46
== END ==
LOC: CPRE 08:49
PROVIDERS: ATTEND Orthopaedic Surgery
DX: Z01.810 Encounter for preprocedural cardiovascular examination (principal); Z01.812 Encounter for preprocedural laboratory examination; Z01.818 Encounter for other preprocedural examination; M17.12 Unilateral primary osteoarthritis, left knee; M21.161 Varus deformity, not elsewhere classified, right knee; M79.609 Pain in unspecified limb; I10 Essential (primary) hypertension; R94.31 Abnormal electrocardiogram [ECG] [EKG]
CPT/HCPCS: 36415; 80048; 81001; 85027; 85610; 85730; 93005

== ENCOUNTER 2017-06-18 05:11 | Day surgery (SDC) | payer MEDICARE ==
[~2017-06-18] VITALS: Ht 172.7 cm; Wt 70.0 kg
[~2017-06-18 05:11] MED LIST changes: -ALBUTEROL INH; -ASCO100029; -ASPI81TA81; -BILB30CA PO; -CALC12502 PO; -CYMB60CA PO; -DICL1GEL7 TOPICAL; -FERR325T18 PO; -GABA300C5 PO; -LACT10SO PO; -MAGN400T2 PO; -MEMA28CA PO; -MULTTAB23 PO; -POLY17S PO; -PROT40TA PO; -TAMS0.4C4 PO; -TAMS5CAP PO; -TOPI25 PO; -[UNRECOGNIZED DRUG - OTHER] PO
[2017-06-18] MEDS ORDERED: TRANEXAMIC ACID INJ 700 MG in SODIUM CHLORIDE 0.9% INJ 100 ML IV SCH ×4 (05:45)
[2017-06-18] MEDS ORDERED: ceFAZolin 2 GM PREMIX 50 ML IV SCH (05:45)
[2017-06-18] MEDS ORDERED: CHLORHEXIDINE GLUCONATE 2 % 1 PACK (2 CLOTHS) TOPICAL PRN (05:45)
[2017-06-18] MEDS ORDERED: POVIDONE IODINE 5% (ANTISEPSIS KIT) 4 APPLICATIONS EACH NARE PRN (05:45)
[2017-06-18] MEDS ORDERED: SODIUM CHLORID 0.9% 500 ML IV PRN (05:45)
[2017-06-18] MEDS ORDERED: METOPROLOL TARTRATE 25 MG TAB PO PRN (05:45)
[2017-06-18] MEDS ORDERED: EXPAREL PERI-ARTICULAR INJECTION (TOTAL VOL. 60 ML) P-ARTICULR SCH ×2 (05:45)
[2017-06-18] MEDS ORDERED: CHLORHEXIDINE GLUCONATE 4% SOLN 120 ML BTL TOPICAL SCH (05:45)
[2017-06-18] MEDS ORDERED: FAMOTIDINE 20 MG/2 ML VIAL ONE (05:50)
[2017-06-18] MEDS ORDERED: ACETAMINOPHEN 1000 MG/100 ML 100 ML IV ONE (05:50)
[2017-06-18] MEDS: LACTATED RINGER'S 1000 ML IV PRN ×2 (06:00→06:50)
[2017-06-18 06:08] VITALS: BP 149/64; PULSE 42; RESP 18; TEMP 97.6; O2SAT 98
[2017-06-18] MEDS ORDERED: GENTAMICIN SULFATE 80 MG/2 ML VIAL ONE (06:14)
[2017-06-18 06:20] VITALS: PULSE 35
[2017-06-18 06:23] LABS: AUTOMATED NEUTROPHIL # 4.2 TH/MM3 (1.8-7.7); BASOPHIL % 0.8 % (0.0-2.0); EOSINOPHIL # 0.2 TH/MM3 (0-0.4); EOSINOPHIL % 2.8 % (0.0-4.0); HEMATOCRIT 42.1 % (39.0-51.0); HEMOGLOBIN 13.6 GM/DL (13.0-17.0); LYMPHOCYTE # 1.1 TH/MM3 (1.0-4.8); MEAN CELL VOLUME 82.5 FL (80.0-100.0); MEAN CORPUSCULAR HEMOGLOBIN 26.8 PG (27.0-34.0); MEAN CORPUSCULAR HGB CONC 32.4 % (32.0-36.0); MEAN PLATELET VOLUME 8.7 FL (7.0-11.0); MONO % 8.3 % (0.0-8.0); MONOCYTE # 0.5 TH/MM3 (0-0.9); NEUT % 69.1 % (16.0-70.0); PLATELET COUNT 155 TH/MM3 (150-450); RED CELL DISTRIBUTION WIDTH 15.3 % (11.6-17.2)
[2017-06-18] MEDS ORDERED: FAT EMULSION 20% INJ 0 ML ONE (06:24)
--- NOTE | 2017-06-18 15:38 | EKG ---
Date Performed: 06/18/2017 Time Performed: 06:32:18 PTAGE: 86 years EKG: SINUS BRADYCARDIA BORDERLINE ECG PREVIOUS TRACING : 04/22/2017 09.15 Prolonged QT interval DOCTOR: Tariq Cancino Interpretating Date/Time 06/18/2017 15:27:40
== END 2017-06-18 06:45 | disposition still patient (30) ==
LOC: HSDI 05:11 → HSDC 05:11 → UNDOADMIN 05:11 → HSDI 05:11 → HSDC 06:45 → UNDODISIN 06:45 → EDSTATUS 07:00
PROVIDERS: ATTEND Orthopaedic Surgery
DX: M17.11 Unilateral primary osteoarthritis, right knee (principal); R00.1 Bradycardia, unspecified; I10 Essential (primary) hypertension; M10.9 Gout, unspecified; G62.9 Polyneuropathy, unspecified; E78.5 Hyperlipidemia, unspecified; G30.9 Alzheimer's disease, unspecified; F02.80 Dementia in other diseases classified elsewhere, unspecified severity, without behavioral disturbance, psychotic disturbance, mood disturbance, and anxiety; Z87.891 Personal history of nicotine dependence; Z01.810 Encounter for preprocedural cardiovascular examination; Z01.818 Encounter for other preprocedural examination; Z53.09 Procedure and treatment not carried out because of other contraindication
CPT/HCPCS: 85025; 86850; 86900; 86901; 93005; C9290; G0463; J0131; J7120; 99211; J1580

== ENCOUNTER 2017-06-18 06:58 | Observation (INO) | payer MEDICARE ==
[~2017-06-18] VITALS: Ht 172.7 cm; Wt 66.4 kg
[2017-06-18 07:15] VITALS: BP 142/64; PULSE 43; RESP 15; O2SAT 93
[2017-06-18 07:25] VITALS: BP 142/64; PULSE 43; RESP 15; O2SAT 94
[2017-06-18] MEDS ORDERED: SODIUM CHLORIDE 0.9% FLUSH 10 ML FLUSH IVF PRN (07:30)
--- NOTE | 2017-06-18 07:40 | PD ---
HPI Chief Complaint: Low heart rate Time Seen by Provider: 07:25 Travel History International Travel<30 days: No Contact w/Intl Traveler<30days: No History of Present Illness HPI 86-year-old male states that he was to have surgery to have his knee replaced but when he was in the preoperative room his heart rate was in the 30s and 40s so they sent him here. He denies being on any beta-sayda or calcium channel sayda that he knows of. He states he has had low heart rate in the 50s before but not like this. He denies any symptoms other than generalized weakness yesterday and currently denies any now. He states Dr. Waite was supposed to do his surgery today. He denies following with a disposal man or having any heart issues in the past. Quality is low. Severity is in the 40s. He denies specific modifying factors. PFSH Past Medical History Arthritis: Yes Anxiety: Yes Cancer: No Diabetes: No Endocrine: No Genitourinary: No Hepatitis: No Hiatal Hernia: No Immune Disorder: No Musculoskeletal: Yes (Joint pain, RIGHT KNEE AND LEFT KNEE PAIN) Neurologic: No (PERIPHERAL NEUROPATHY HANDS AND FEET) Reproductive: Yes (enlarged prostate ) Respiratory: No Thyroid Disease: No Past Surgical History Abdominal Surgery: Yes (HERNIA) AICD: No Eye Surgery: Yes (GLAUCOMA SHUNT, CATARACT BILAT) Joint Replacement: No Pacemaker: No Social History Alcohol Use: No Tobacco Use: No Substance Use: No Allergies-Medications (Allergen,Severity, Reaction): Coded Allergies: diclofenac (Unverified Allergy, Severe, Intestinal Bleeding, 06/17/17) etodolac (Unverified Allergy, Severe, Intestinal Bleeding, 06/17/17) flurbiprofen (Unverified Allergy, Severe, Intestinal Bleeding, 06/17/17) ibuprofen (Unverified Allergy, Severe, Intestinal Bleeding, 06/17/17) indomethacin (Unverified Allergy, Severe, Intestinal Bleeding, 06/17/17) ketoprofen (Unverified Allergy, Severe, Intestinal Bleeding, 06/17/17) ketorolac (Unverified Allergy, Severe, Intestinal Bleeding, 06/17/17) naproxen (Unverified Allergy, Severe, Intestinal Bleeding, 06/17/17) oxaprozin (Unverified Allergy, Severe, Intestinal Bleeding, 06/17/17) Reported Meds & Prescriptions Reported Meds & Active Scripts Active Reported Proair Hfa 8.5 GM Inh (Albuterol Sulfate) 90 Mcg/Act Aer 2 Puff INH Q4HR PRN 108 mcg/actuation Allopurinol 300 Mg Tab 300 Mg PO DAILY Ferrous Gluconate 324 Mg (37.5 Mg Iron) Tab 325 Mg PO DAILY Zyrtec (Cetirizine HCl) 10 Mg Tablet 10 Tab PO DAILY Flonase Nasal [place] (Fluticasone Nasal [place]) 50 Mcg/Act [place] 100 Mcg EACH NARE BID Miralax Powder (Polyethylene Glycol 3350 Powder) 17 Gm Powd 17 Gm PO DAILY Mix and dissolve one measuring cap-ful (17 grams) in water or juice. Centrum Silver Adult 50+ (Multiple Vitamins W/ Minerals) 0.4 Mg-300 Mcg-250 Mcg Tab 0.4 Tab PO DAILY [facility] ([place] 3 Fatty Ndnnq-Mqzbcf-Mxsjfrduoq) 250-2.5-0.5 Mg Cap 1 Cap PO DAILY Travatan Z Opth Drops (Travoprost) 0.004 % Soln 1 Drop EACH EYE HS Lipitor (Atorvastatin Calcium) 20 Mg Tab 20 Mg PO DAILY [place] (Hydrocodone-Acetaminophen) 5-325 mg Tab 1 Tab PO Q6H PRN Donepezil 10 Mg Tab 10 Mg PO HS Combigan Opth Drops (Brimonidine-Timolol Opth Drops) 0.2-0.5% Soln 1 Drop EACH EYE Q12HR Azopt Opth Drops (Brinzolamide) 1% Susp 1 Drop EACH EYE TID Alprazolam 0.5 Mg Tab 0.5 Mg PO Q6H PRN Review of Systems Except as stated in HPI: all other systems reviewed are Neg Physical Exam Narrative GENERAL: 86-year-old male in no apparent distress SKIN: Focused skin assessment warm/dry. HEAD: Atraumatic. Normocephalic. EYES: Pupils equal and round. No scleral icterus. No injection or drainage. ENT: No nasal bleeding or discharge. Mucous membranes pink and moist. NECK: Trachea midline. CARDIOVASCULAR: Bradycardic rate and regular rhythm rhythm. RESPIRATORY: No accessory muscle use. Clear to auscultation. Breath sounds equal bilaterally. GASTROINTESTINAL: Abdomen soft, non-tender, nondistended. MUSCULOSKELETAL: No obvious deformities. No clubbing. No cyanosis. NEUROLOGICAL: Awake and alert. Moves all extremities. Normal speech. Data Data Last Documented VS Vital Signs Date Time Temp Pulse Resp B/P (MAP) Pulse Ox O2 Delivery O2 Flow Rate FiO2 06/18/17 08:45 44 06/18/17 07:25 15 142/64 (90) 94 Room Air Orders Orders Electrocardiogram (06/18/17 07:25) Ckmb (Isoenzyme) Profile (06/18/17 07:25) Complete Blood Count With Diff (06/18/17 07:25) Comprehensive Metabolic Panel (06/18/17 07:25) Magnesium (Mg) (06/18/17 07:25) Prothrombin Time / Inr (Pt) (06/18/17 07:25) Act Partial Throm Time (Ptt) (06/18/17 07:25) Troponin I (06/18/17 07:25) Chest, Single Ap (06/18/17 07:25) Ecg Monitoring (06/18/17 07:25) Iv Access Insert/Monitor (06/18/17 07:25) Oximetry (06/18/17 07:25) Sodium Chloride 0.9% Flush (Ns Flush) (06/18/17 07:30) CKMB (06/18/17 08:05) CKMB% (06/18/17 08:05) Admit Order (Ed Use Only) (06/18/17 09:37) Labs Laboratory Tests Test 06/18/17 08:05 White Blood Count 5.9 TH/MM3 Red Blood Count 5.01 MIL/MM3 Hemoglobin 13.5 GM/DL Hematocrit 41.3 % Mean Corpuscular Volume 82.4 FL Mean Corpuscular Hemoglobin 26.9 PG Mean Corpuscular Hemoglobin Concent 32.6 % Red Cell Distribution Width 14.9 % Platelet Count 138 TH/MM3 Mean Platelet Volume 8.4 FL Neutrophils (%) (Auto) 66.6 % Lymphocytes (%) (Auto) 20.8 % Monocytes (%) (Auto) 8.5 % Eosinophils (%) (Auto) 3.2 % Basophils (%) (Auto) 0.9 % Neutrophils # (Auto) 3.9 TH/MM3 Lymphocytes # (Auto) 1.2 TH/MM3 Monocytes # (Auto) 0.5 TH/MM3 Eosinophils # (Auto) 0.2 TH/MM3 Basophils # (Auto) 0.1 TH/MM3 CBC Comment DIFF FINAL Differential Comment Prothrombin Time 10.9 SEC Prothromb Time International Ratio 1.1 RATIO Activated Partial Thromboplast Time 25.7 SEC Blood Urea Nitrogen 33 MG/DL Creatinine 1.61 MG/DL Random Glucose 93 MG/DL Total Protein 6.3 GM/DL Albumin 3.4 GM/DL Calcium Level 8.7 MG/DL Magnesium Level 2.4 MG/DL Alkaline Phosphatase 86 U/L Aspartate Amino Transf (AST/SGOT) 21 U/L Alanine Aminotransferase (ALT/SGPT) 22 U/L Total Bilirubin 0.4 MG/DL Sodium Level 141 MEQ/L Potassium Level 4.6 MEQ/L Chloride Level 113 MEQ/L Carbon Dioxide Level 22.2 MEQ/L Anion Gap 6 MEQ/L Estimat Glomerular Filtration Rate 41 ML/MIN Total Creatine Kinase 180 U/L Creatine Kinase MB 6.6 NG/ML Troponin I LESS THAN 0.02 NG/ML MDM Medical Decision Making Medical Screen Exam Complete: Yes Emergency Medical Condition: Yes Medical Record Reviewed: Yes (Past history confirmed) Interpretation(s) EKG is sinus bradycardia without ST segment elevation or depression or consecutive T-wave inversion CBC & BMP Diagram 06/18/17 08:05 Total Protein 6.3 L, Albumin 3.4, Calcium Level 8.7, Magnesium Level 2.4, Alkaline Phosphatase 86, Aspartate Amino Transf (AST/SGOT) 21, Alanine Aminotransferase (ALT/SGPT) 22, Total Bilirubin 0.4 Renal insufficiency is stable Mild elevation in CK-MB with negative troponin Differential Diagnosis Electrolyte abnormality, renal failure, cardiac Narrative Course We will check blood work, chest x-ray, EKG and observe. Patient without signs of hypotension or symptoms so we will hold atropine Patient's heart rate remains in the 40s. Mild elevation in CK-MB. Patient agrees to observation for further workup, still symptom-free Physician Communication Physician Communication resident team agree to admit Diagnosis Primary Impression: Bradycardia Admitting Information Admitting Physician Requests: Observation Sharmila Richard MD Jun 18, 2017 07:40
--- NOTE | 2017-06-18 07:48 | RADRPT ---
EXAM DATE/TIME: 06/18/2017 07:33 [place] COMPARISON: CHEST SINGLE AP, March 28, 2016, 14:30. INDICATIONS : Palpitations. MEDICAL HISTORY : None. SURGICAL HISTORY : None. ENCOUNTER: Initial ACUITY: 1 day PAIN SCORE: 0/10 LOCATION: Bilateral chest FINDINGS: A single view of the chest demonstrates the lungs to be symmetrically aerated without evidence of mas s, infiltrate or effusion. The cardiomediastinal contours are unremarkable. Heart and the upper limi ts of normal in size. Degenerative changes and scoliosis thoracic spine. CONCLUSION: No acute disease. Andrea Brito MD on June 18, 2017 at 7:46 Board Certified Radiologist. This report was verified electronically.
[2017-06-18 08:27] LABS: AUTOMATED NEUTROPHIL # 3.9 TH/MM3 (1.8-7.7); BASOPHIL # 0.1 TH/MM3 (0-0.2); BASOPHIL % 0.9 % (0.0-2.0); EOSINOPHIL # 0.2 TH/MM3 (0-0.4); EOSINOPHIL % 3.2 % (0.0-4.0); HEMATOCRIT 41.3 % (39.0-51.0); HEMOGLOBIN 13.5 GM/DL (13.0-17.0); LYMPH % 20.8 % (9.0-44.0); LYMPHOCYTE # 1.2 TH/MM3 (1.0-4.8); MEAN CELL VOLUME 82.4 FL (80.0-100.0); MEAN CORPUSCULAR HEMOGLOBIN 26.9 PG (27.0-34.0); MEAN CORPUSCULAR HGB CONC 32.6 % (32.0-36.0); MEAN PLATELET VOLUME 8.4 FL (7.0-11.0); MONO % 8.5 % (0.0-8.0); MONOCYTE # 0.5 TH/MM3 (0-0.9); NEUT % 66.6 % (16.0-70.0); PLATELET COUNT 138 TH/MM3 (150-450); RED BLOOD COUNT 5.01 MIL/MM3 (4.50-5.90); RED CELL DISTRIBUTION WIDTH 14.9 % (11.6-17.2); WHITE BLOOD COUNT 5.9 TH/MM3 (4.0-11.0)
[2017-06-18 08:36] LABS: INTERNATIONAL NORMALIZED RATIO 1.1 RATIO; PROTHROMBIN TIME - PATIENT 10.9 SEC (9.8-11.6)
[2017-06-18 08:51] LABS: ALBUMIN 3.4 GM/DL (3.4-5.0); ALKALINE PHOSPHATASE 86 U/L (45-117); ALT (GPT) 22 U/L (12-78); AST (GOT) 21 U/L (15-37); BICARBONATE 22.2 MEQ/L (21.0-32.0); BLOOD UREA NITROGEN 33 MG/DL (7-18); CALCIUM 8.7 MG/DL (8.5-10.1); CHLORIDE 113 MEQ/L (98-107); CREATININE 1.61 MG/DL (0.60-1.30); GLOMERULAR FILTRATION RATE 41 ML/MIN (>89); GLUCOSE,RANDOM 93 MG/DL (74-106); MAGNESIUM 2.4 MG/DL (1.5-2.5); SODIUM (NA) 141 MEQ/L (136-145); TOTAL BILIRUBIN ADULT 0.4 MG/DL (0.2-1.0); TOTAL PROTEIN 6.3 GM/DL (6.4-8.2); TROPONIN I LESS THAN 0.02 NG/ML (0.02-0.05)
--- NOTE | 2017-06-18 10:37 | HHI.HP ---
[facility] Service Family Medicine Primary Care Physician Timo Dodson MD Admission Diagnosis bradycardia Diagnoses: International Travel<30 Days: No Contact w/Intl Traveler<30days: No Known Affected Area: No History of Present Illness Patient is an 86 year old male who presents to the ED for evaluation of bradycardia. Per patient, his baseline HR is in 50s. He was scheduled for right knee replacement surgery when he was noted to have HR in 30-40s. When evaluated at his pre-op visit in the office yesterday, no mention was made of a low HR. He denies fatigue, dizziness/lightheadedness, pre-syncope/syncope, and chest pain. He does not take any rate-controlling cardiac medications. The patient denies any cardiac conditions but sees Dr. Barakat annually for reasons unknown to him or daughter. (Sanjuana Elam MD R1) Review of Systems Constitutional: DENIES: Fatigue, Dizziness, Change in appetite Eyes: DENIES: Blurred vision, Vision loss, Double Vision Ears, nose, mouth, throat: DENIES: Nasal discharge, Throat pain, Ear Pain, Running Nose Respiratory: DENIES: Cough, Sputum production, Shortness of breath Cardiovascular: DENIES: Chest pain, Palpitations Gastrointestinal: DENIES: Abdominal pain, Black stools, Bloody stools, Constipation, Diarrhea, Nausea, Vomiting Musculoskeletal: COMPLAINS OF: Joint pain (At baseline ) Integumentary: DENIES: Nail changes, Rash Neurologic: DENIES: Abnormal gait, Headache Psychiatric: COMPLAINS OF: Agitation (Sanjuana Elam MD R1) Past Family Social History Past Medical History Anxiety Dementia Cataracts Glaucoma Cervical stenosis BPH Iron deficiency anemia Arthritis Peripheral neuropathy (hands and feet) Past Surgical History Cataract surgery bilateral Glaucoma shunt right shoulder repair Hernia repair (abdominal) Colonoscopy Reported Medications Proair Hfa 8.5 GM Inh (Albuterol Sulfate) 90 Mcg/Act Aer 2 Puff INH Q4HR PRN Allopurinol 300 Mg Tab 300 Mg PO DAILY Ferrous Gluconate 324 Mg (37.5 Mg Iron) Tab 325 Mg PO DAILY Zyrtec (Cetirizine HCl) 10 Mg Tablet 10 Tab PO DAILY Flonase Nasal [place] (Fluticasone Nasal [place]) 50 Mcg/Act [place] 100 Mcg EACH NARE BID Miralax Powder (Polyethylene Glycol 3350 Powder) 17 Gm Powd 17 Gm PO DAILY Centrum Silver Adult 50+ (Multiple Vitamins W/ Minerals) 0.4 Mg-300 Mcg-250 Mcg Tab 0.4 Tab PO DAILY [facility] ([place] 3 Fatty Loqgd-Jdsrnp-Ibtyyftldt) 250-2.5-0.5 Mg Cap 1 Cap PO DAILY Travatan Z Opth Drops (Travoprost) 0.004 % Soln 1 Drop EACH EYE HS Lipitor (Atorvastatin Calcium) 20 Mg Tab 20 Mg PO DAILY Maize (Hydrocodone-Acetaminophen) 5-325 mg Tab 1 Tab PO Q6H PRN Donepezil 10 Mg Tab 10 Mg PO HS Combigan Opth Drops (Brimonidine-Timolol Opth Drops) 0.2-0.5% Soln 1 Drop EACH EYE Q12HR Azopt Opth Drops (Brinzolamide) 1% Susp 1 Drop EACH EYE TID Alprazolam 0.5 Mg Tab 0.5 Mg PO Q6H PRN (LaBell,Sanjuana RIVERA R1) Allergies: Coded Allergies: diclofenac (Unverified Allergy, Severe, Intestinal Bleeding, 06/17/17) etodolac (Unverified Allergy, Severe, Intestinal Bleeding, 06/17/17) flurbiprofen (Unverified Allergy, Severe, Intestinal Bleeding, 06/17/17) ibuprofen (Unverified Allergy, Severe, Intestinal Bleeding, 06/17/17) indomethacin (Unverified Allergy, Severe, Intestinal Bleeding, 06/17/17) ketoprofen (Unverified Allergy, Severe, Intestinal Bleeding, 06/17/17) ketorolac (Unverified Allergy, Severe, Intestinal Bleeding, 06/17/17) naproxen (Unverified Allergy, Severe, Intestinal Bleeding, 06/17/17) oxaprozin (Unverified Allergy, Severe, Intestinal Bleeding, 06/17/17) Active Ordered Medications Current Medications Medications (Trade) Dose Ordered Sig/Carrie Route Start Time Stop Time Status Last Admin (NS Flush) 2 ml UNSCH PRN IVF 06/18/17 07:30 (Proair Hfa Inh) 2 puff Q4HR PRN INH 06/18/17 11:15 UNV (Zyloprim) 300 mg DAILY PO 06/19/17 09:00 UNV (Xanax) 0.5 mg Q6H PRN PO 06/18/17 11:15 UNV (Lipitor) 20 mg DAILY PO 06/19/17 09:00 UNV (ZyrTEC) 100 mg DAILY PO 06/19/17 09:00 UNV (Aricept) 10 mg HS PO 06/18/17 21:00 UNV Non-Formulary Medication 1 drop Q12HR EACH EYE 06/18/17 21:00 UNV Non-Formulary Medication 1 drop TID EACH EYE 06/18/17 13:00 UNV Non-Formulary Medication 325 mg DAILY PO 06/19/17 09:00 UNV Non-Formulary Medication 100 mcg BID EACH NARE 06/18/17 21:00 UNV Non-Formulary Medication 0.4 tab DAILY PO 06/19/17 09:00 UNV Non-Formulary Medication 1 cap DAILY PO 06/19/17 09:00 UNV Non-Formulary Medication 1 drop HS EACH EYE 06/18/17 21:00 UNV Family History He denies any family hx of esophageal, gastric, or colorectal cancer. Father of an CA in his 80s. Mother secondary to Alzheimer's dementia. Social History Lives with of 56 years. Alcohol: 1/2 glass of red wine with dinner daily. Tobacco: Stopped smoking 30 years ago. Drug: Denies. (Sanjuana Elam MD R1) Physical Exam Vital Signs Vital Signs Date Time Temp Pulse Resp B/P (MAP) Pulse Ox O2 Delivery O2 Flow Rate FiO2 06/18/17 08:45 44 06/18/17 07:25 43 15 142/64 (90) 94 Room Air 06/18/17 07:15 43 15 142/64 (90) 93 Physical Exam GENERAL: This is a well-nourished, well-developed patient, in no apparent distress. SKIN: Cool and dry. HEAD: Atraumatic. Normocephalic. EYES: Pupils equal round. Extraocular motions intact. Left eye - redness noted, associated with glaucoma. No scleral icterus. ENT: Nose without bleeding, purulent drainage or septal hematoma. Airway patent. NECK: Trachea midline. No JVD. Supple, nontender, no meningeal signs. CARDIOVASCULAR: Bradycardia. Normal rhythm without murmurs, gallops, or rubs. RESPIRATORY: Clear to auscultation. Breath sounds equal bilaterally. No wheezes , rales, or rhonchi. GASTROINTESTINAL: Abdomen soft, non-tender, nondistended. No hepato-splenomegaly , or palpable masses. No guarding. MUSCULOSKELETAL: Extremities without clubbing, cyanosis, or edema. Joint tenderness involving right knee. No calf tenderness. NEUROLOGICAL: Awake and alert. Cranial nerves II through XII intact. Motor and sensory grossly within normal limits. Normal speech. Laboratory Laboratory Tests Test 06/18/17 08:05 White Blood Count 5.9 Red Blood Count 5.01 Hemoglobin 13.5 Hematocrit 41.3 Mean Corpuscular Volume 82.4 Mean Corpuscular Hemoglobin 26.9 Mean Corpuscular Hemoglobin Concent 32.6 Red Cell Distribution Width 14.9 Platelet Count 138 Mean Platelet Volume 8.4 Neutrophils (%) (Auto) 66.6 Lymphocytes (%) (Auto) 20.8 Monocytes (%) (Auto) 8.5 Eosinophils (%) (Auto) 3.2 Basophils (%) (Auto) 0.9 Neutrophils # (Auto) 3.9 Lymphocytes # (Auto) 1.2 Monocytes # (Auto) 0.5 Eosinophils # (Auto) 0.2 Basophils # (Auto) 0.1 CBC Comment DIFF FINAL Differential Comment Prothrombin Time 10.9 Prothromb Time International Ratio 1.1 Activated Partial Thromboplast Time 25.7 Blood Urea Nitrogen 33 Creatinine 1.61 Random Glucose 93 Total Protein 6.3 Albumin 3.4 Calcium Level 8.7 Magnesium Level 2.4 Alkaline Phosphatase 86 Aspartate Amino Transf (AST/SGOT) 21 Alanine Aminotransferase (ALT/SGPT) 22 Total Bilirubin 0.4 Sodium Level 141 Potassium Level 4.6 Chloride Level 113 Carbon Dioxide Level 22.2 Anion Gap 6 Estimat Glomerular Filtration Rate 41 Total Creatine Kinase 180 Creatine Kinase MB 6.6 Troponin I LESS THAN 0.02 (Sanjuana Elam MD R1) Result Diagram: 06/18/17 0806/18/17 08 Imaging Last 72 hours Impressions Chest X-Ray 06/18/17 07 Signed Impressions: Service Date/Time: Sunday, June 18, 2017 07:33 - CONCLUSION: No acute disease. Andrea Brito MD (Sanjuana Elam MD R1) Caprini VTE Risk Assessment Caprini VTE Risk Assessment: Mod/High Risk (score >= 2) Caprini Risk Assessment Model Point Value = 1 Point Value = 2 Point Value = 3 Point Value = 5 Age 41-60 Minor surgery BMI > 25 kg/m2 Swollen legs Varicose veins or History of unexplained or recurrent spontaneous Oral contraceptives or hormone replacement Sepsis (< 1 month) Serious lung disease, including pneumonia (< 1 month) Abnormal pulmonary function Acute myocardial infarction Congestive heart failure (< 1 month) History of inflammatory bowel disease Medical patient at bed rest Age 61-74 Arthroscopic surgery Major open surgery (> 45 min) Laparoscopic surgery (> 45 min) Malignancy Confined to bed (> 72 hours) Immobilizing plaster cast Central venous access Age >= 75 History of VTE Family history of VTE Factor V Leiden Prothrombin [id number] Lupus anticoagulant Anticardiolipin antibodies Elevated serum homocysteine Heparin-induced thrombocytopenia Other congenital or acquired thrombophilia Stroke (< 1 month) Elective arthroplasty Hip, pelvis, or leg fracture Acute spinal cord injury (< 1 month) Prophylaxis Regimen Total Risk Factor Score Risk Level Prophylaxis Regimen 0-1 Low Early ambulation 2 Moderate Order ONE of the following: *Sequential Compression Device (SCD) *Heparin 5000 units SQ BID 3-4 Higher Order ONE of the following medications: *Heparin 5000 units SQ TID *Enoxaparin/Lovenox 40 mg SQ daily (WT < 150 kg, CrCl > 30 mL/min) *Enoxaparin/Lovenox 30 mg SQ daily (WT < 150 kg, CrCl > 10-29 mL/min) *Enoxaparin/Lovenox 30 mg SQ BID (WT < 150 kg, CrCl > 30 mL/min) AND/OR *Sequential Compression Device (SCD) 5 or more Highest Order ONE of the following medications: *Heparin 5000 units SQ TID (Preferred with Epidurals) *Enoxaparin/Lovenox 40 mg SQ daily (WT < 150 kg, CrCl > 30 mL/min) *Enoxaparin/Lovenox 30 mg SQ daily (WT < 150 kg, CrCl > 10-29 mL/min) *Enoxaparin/Lovenox 30 mg SQ BID (WT < 150 kg, CrCl > 30 mL/min) AND *Sequential Compression Device (SCD) (Sanjuana Elam MD R1) Assessment and Plan Assessment and Plan Patient is an 86 year old male who presents to the ED for evaluation of bradycardia. Patient with asymptomatic bradycardia. Admitted for observation. Code Status Full code. Discussed Condition With Drs. Condon and Valeria. (Sanjuana Elam MD R1) Attending Attestation Patient seen, examined, and discussed with resident team. I agree with assessment and management as documented and discussed with me. Pt admitted under observation for asymptomatic bradycardia noted this morning when he was supposed to have knee surgery. Pt is seen around 5:15pm, with family at bedside. He denies any symptoms. Review of medications reveal he is on timolol eye drops, which is likely to be contributing to his bradycardia. Reassuring by troponin, ekg, CXR, CBC. Discharge home today. Pt to contact ophtho and cardiology to determine if there are other ways to control ocular blood pressure without timolol. (Aisha Condon MD) Problem List: (1) Bradycardia ICD Codes: R00.1 - Bradycardia, unspecified Status: Acute Plan: Bradycardia with HR in 40s. Baseline 50s. Patient was sent to ED from pre-op for evaluation of bradycardia. Patient followed by Dr. Barakat annually for reasons unknown to patient and his daughter. EKG 06/18: Sinus bradycardia. Rule out bradycardia secondary to CA, infection and thyroid dysfunction. CA work-up: * Patient denies chest pain. * Series of EKGs. Initial EKG with sinus bradycardia; no ST changed. * Series of Troponin. Troponin x2 negative. * Continuous telemetry. Infection work-up: * Afebrile. * WBC 5.9. * Blood culture pending. * UA pending. * Urine culture pending. * CXR: No acute disease. Thyroid work-up: * TSH pending. If work-ups negative, patient may be discharged with PCP and cardiology follow- up appointments. (2) Anxiety ICD Codes: F41.9 - Anxiety disorder, unspecified Status: Chronic Plan: Patient with history of anxiety. * Continue home meds. (3) Glaucoma ICD Codes: H40.9 - Glaucoma Status: Chronic Plan: Patient with history of glaucoma with shunt placement on right. * Continue home meds. (4) Gout ICD Codes: M10.9 - Gout Status: Chronic Plan: Patient with history of gout. * Continue home meds. (5) Iron deficiency anemia ICD Codes: D50.9 - Iron deficiency anemia, unspecified Status: Chronic Plan: Patient with history of iron deficiency anemia. Hgb 06/18: 13.5. * Continue home meds. (6) Dementia ICD Codes: F03.90 - Unspecified dementia without behavioral disturbance Status: Chronic Plan: Patient with history of dementia. * Continue home meds. (7) Fluid,Electrolyte, Nutrition and Prophylaxis Status: Acute Plan: Fluid: * Tolerates PO. Electrolyte: * Monitor and replete as necessary. Nutrition: * Regular diet. Prophylaxis: * Heparin 5,000 units q8hr. (Sanjuana Elam MD R1) Sanjuana Elam MD R1 Jun 18, 2017 10:37 Aisha Condon MD Jun 18, 2017 22:00
[2017-06-18] MEDS ORDERED: ALBUTEROL SULFATE 90 MCG/ACT HFA 8 GM INHALER INH PRN (11:15)
[2017-06-18] MEDS ORDERED: ALPRAZolam 0.5 MG TAB PO PRN (11:15)
[2017-06-18] MEDS ORDERED: SODIUM CHLORIDE 0.9% FLUSH 10 ML FLUSH IV FLUSH PRN (11:30)
[2017-06-18] MEDS ORDERED: BISACODYL 10 MG SUPP RECTAL PRN (11:30)
[2017-06-18] MEDS ORDERED: SENNOSIDES 8.6 MG TAB PO PRN (11:30)
[2017-06-18] MEDS ORDERED: MAGNESIUM HYDROXIDE SUSP 30 ML CUP PO PRN (11:30)
[2017-06-18] MEDS ORDERED: LACTULOSE SYRUP 20 GM/30 ML CUP PO PRN (11:30)
[2017-06-18] MEDS ORDERED: ACETAMINOPHEN 325 MG TAB PO PRN (11:30)
[2017-06-18] MEDS ORDERED: ONDANSETRON HCL 4 MG/2 ML VIAL IVP PRN (11:30)
[2017-06-18 12:00] VITALS: BP 143/63; PULSE 91; RESP 16; TEMP 97.7; O2SAT 94
[2017-06-18] MEDS ORDERED: HEPARIN SODIUM - SQ 10,000 UNITS/ML VIAL SQ SCH (12:00)
[2017-06-18] MEDS ORDERED: BRINZOLAMIDE EACH EYE SCH (13:00)
[2017-06-18] MEDS ORDERED: PILL SPLITTER OTHER PRN (14:00)
[2017-06-18 15:44] VITALS: BP 136/65; PULSE 50; RESP 18; TEMP 98.4; O2SAT 98
[2017-06-18 16:14] LABS: HEMATOCRIT 43.4 % (39.0-51.0); HEMOGLOBIN 14.2 GM/DL (13.0-17.0); MEAN CELL VOLUME 82.9 FL (80.0-100.0); MEAN CORPUSCULAR HEMOGLOBIN 27.1 PG (27.0-34.0); MEAN CORPUSCULAR HGB CONC 32.7 % (32.0-36.0); MEAN PLATELET VOLUME 8.5 FL (7.0-11.0); PLATELET COUNT 155 TH/MM3 (150-450); RED BLOOD COUNT 5.24 MIL/MM3 (4.50-5.90); RED CELL DISTRIBUTION WIDTH 14.6 % (11.6-17.2); WHITE BLOOD COUNT 6.7 TH/MM3 (4.0-11.0)
--- NOTE | 2017-06-18 17:12 | HHI.DCPOC ---
Discharge Care Plan Diagnosis: (1) Bradycardia (2) Glaucoma Goals to Promote Your Health * To prevent worsening of your condition and complications * To maintain your health at the optimal level Directions to Meet Your Goals Take your medications as prescribed Follow your dietary instruction Follow activity as directed Keep your appointments as scheduled Take your immunizations and boosters as scheduled If your symptoms worsen call your PCP, if no PCP go to Urgent Care Center or Emergency Room Smoking is Dangerous to Your Health. Avoid second hand smoke Call the 24-hour hour crisis hotline for domestic abuse at Sanjuana Elam MD R1 Jun 18, 2017 17:12
[2017-06-18 17:37] LABS: AMORPHOUS SEDIMENT, URINE RARE; BILIRUBIN, URINE NEG (NEG); BLOOD, URINE NEG (NEG); GLUCOSE,URINE NEG (NEG); KETONE, URINE NEG (NEG); MUCUS URINE FEW /lpf (OCC); NITRITE,URINE NEG (NEG); PH, URINE 6.5 (5.0-8.5); URINE COLOR YELLOW (YELLW/STRAW); URINE LEUKOCYTE ESTERASE NEG (NEG)
[2017-06-18] MEDS ORDERED: DOCUSATE SODIUM 50 MG/SENNA 8.6 MG TAB PO SCH (21:00)
[2017-06-18] MEDS ORDERED: LATANOPROST 0.005% OPHT SOLN 2.5 ML BTL EACH EYE SCH (21:00)
[2017-06-18] MEDS ORDERED: FLUTICASONE PROPIONATE 50 MCG/ACT 16 GM NASAL SPRAY NASAL SCH (21:00)
[2017-06-18] MEDS ORDERED: DONEPEZIL HCL 5 MG TAB PO SCH (21:00)
[2017-06-18] MEDS ORDERED: SODIUM CHLORIDE 0.9% FLUSH 10 ML FLUSH IV FLUSH SCH (21:00)
[2017-06-18] MEDS ORDERED: TIMOLOL MALEATE 0.5% OPHT SOLN 5 ML BTL EACH EYE SCH (21:00)
[2017-06-18] MEDS ORDERED: NON-FORMULARY DRUG (Brimonidine-Timolol Opth Drops (Combigan Opth Drops) 1 DROP) EACH EYE SCH (21:00)
[2017-06-18] MEDS ORDERED: BRIMONIDINE TARTRATE 0.2% OPHT SOLN 5 ML BTL EACH EYE SCH ×2 (21:00)
[2017-06-19] MEDS ORDERED: CETIRIZINE HCL 10 MG TAB PO SCH (09:00)
[2017-06-19] MEDS ORDERED: ATORVASTATIN 20 MG TAB PO SCH (09:00)
[2017-06-19] MEDS ORDERED: FERROUS SULFATE 300 MG /5ML UDC PO SCH (09:00)
[2017-06-19] MEDS ORDERED: ALLOPURINOL 300 MG TAB PO SCH (09:00)
[2017-06-19] MEDS ORDERED: [UNRECOGNIZED DRUG - OTHER] PO SCH (09:00)
[2017-06-19] MEDS ORDERED: OMEGA PO SCH (09:00)
[2017-06-19] MEDS ORDERED: MULTIVITAMINS/MINERALS THERAPEUTIC TAB PO SCH (09:00)
--- NOTE | 2017-06-19 23:14 | EKG ---
Date Performed: 06/18/2017 Time Performed: 12:00:20 PTAGE: 86 years EKG: SINUS BRADYCARDIA BORDERLINE ECG PREVIOUS TRACING : 06/18/2017 06.32 Since the previous tracing, no significant change noted DOCTOR: Dangelo Barakat Interpretating Date/Time 06/19/2017 23:13:12
== END 2017-06-18 19:26 | disposition home or self-care (01) ==
LOC: NEPC 06:58 → NEDA 09:38 → OBSVTOIN 10:38 → INTOOBSV 10:38 → NEDH 10:53 → NEPHCDU 14:18
PROVIDERS: ADMIT Family Medicine; ATTEND Family Medicine
DX: R00.1 Bradycardia, unspecified (principal); F41.9 Anxiety disorder, unspecified; H40.9 Unspecified glaucoma; M10.9 Gout, unspecified; D50.9 Iron deficiency anemia, unspecified; F03.90 Unspecified dementia, unspecified severity, without behavioral disturbance, psychotic disturbance, mood disturbance, and anxiety; M48.02 Spinal stenosis, cervical region; G62.9 Polyneuropathy, unspecified; M25.561 Pain in right knee; M25.562 Pain in left knee; N40.0 Benign prostatic hyperplasia without lower urinary tract symptoms; M19.90 Unspecified osteoarthritis, unspecified site; Z79.899 Other long term (current) drug therapy; Z87.891 Personal history of nicotine dependence; Z82.49 Family history of ischemic heart disease and other diseases of the circulatory system
CPT/HCPCS: 71045; 80053; 81001; 82550; 82552; 83735; 84484; 85025; 85027; 85610; 85730; 87040; 93005; 97161; 99285; G0378; G8987; G8988; J1644

== ENCOUNTER 2017-11-25 07:42 | Inpatient (IN) ==
[2017-11-25] MEDS ORDERED: Chlorhexidine Gluconate 2% 1 Pack (2 Cloths) TOPICAL ONE (08:30)
[2017-11-25] MEDS ORDERED: Chlorhexidine 4% Topical 120 APPLIC/120 ML Bottle TOPICAL SCH (08:30)
[2017-11-25] MEDS ORDERED: Metoprolol Tartrate 25 MG Tablet PO ONE (08:30)
[2017-11-25] MEDS ORDERED: Sodium Chlor 0.9% Inj 500 ML IV.CONT ONE (08:30)
[2017-11-25] MEDS ORDERED: ceFAZolin 2 GM Premix Inj 2 GM/50 ML PIGGYBACK IV.SIG SCH (09:00)
[2017-11-25] MEDS ORDERED: SODIUM CHLOR 0.9% IV.SIG SCH ×2 (09:00→12:00)
[2017-11-25] MEDS ORDERED: TRANEXAMIC ACID IV.SIG SCH ×2 (09:00→12:00)
[2017-11-25] MEDS ORDERED: Sodium Chlor 0.9% Inj 40 ML, Bupivacaine Liposo PF 1.3% Inj 20 ML P-ARTICULR SCH ×2 (09:00)
[2017-11-25] MEDS ORDERED: Famotidine PF Inj 20 MG/2 ML Vial ONE (10:05)
[2017-11-25] MEDS ORDERED: fentaNYL Citrate Inj 100 MCG/2 ML Ampul ONE (10:15)
[2017-11-25] MEDS ORDERED: fentaNYL Citrate Inj 250 MCG/5 ML Ampul ONE (10:16)
[2017-11-25] MEDS ORDERED: Sodium Chloride 0.9% 2 ML Flush PRN IV.FLUSH (10:31)
[2017-11-25] MEDS ORDERED: Neostigmine Inj 5 MG/5 ML Syringe IV.PUSH ONE (10:32)
[2017-11-25] MEDS ORDERED: Lidocaine PF 1% Inj 5 ML Syringe INFILTRATN ONE (10:32)
[2017-11-25] MEDS ORDERED: Glycopyrrolate Inj 1 MG/5 ML Syringe IV.PUSH ONE (10:32)
--- NOTE | 2017-11-25 12:35 | P.OP ---
- Preoperative Diagnosis (1) Primary osteoarthritis of right knee - Postoperative Diagnosis (1) Primary osteoarthritis of right knee Date of procedure: 11/25/17 Procedure: Right total knee arthroplasty using Maryellen Triathlon prosthesis (uncemented). Anesthesia: GETA, regional (Adductor canal block), local (Exparel) Surgeon: David Waite MD Press Assistant: BETTY Franz Estimated blood loss (mL): 250 Pathology: none sent Operation and Findings: Indications and Findings: This 86-year-old man has had progressively worsening right knee pain secondary to osteoarthritis primarily of the patellofemoral joint beginning over 28 years ago. He has had progressive worsening to the point that his ambulation tolerance is 1/2 mile. He has difficulty with giving way, standing from a seated position, getting up from the floor and ascending and descending stairs. He has been treated with a variety of treatments including activity modification, exercises, intra-articular corticosteroids, intra-articular viscosupplementation, physical therapy and ambulatory aids. He has not responded to this. His goal findings showed limited range of motion with crepitation on range of motion, tenderness on range of motion, and antalgic gait and an effusion. Radiographic findings showed loss of articular cartilage to [id number] in the patellofemoral joint and nearly so on the lateral compartment. There is also patellar femoral and lateral subchondral cyst formation and subchondral sclerosis. Operative findings: There is severe osteoarthritis in the patellofemoral joint with loss of articular cartilage to [id number]. In the lateral compartment there was a severely degenerated meniscus with areas of loss of articular cartilage to expose subchondral bone. In the medial femoral condyle there was a defect in the lateral aspect. The prosthesis used was a Maryellen Triathlon prosthesis. The femur was a size 6, cruciate retaining, uncemented. The tibial baseplate was a size 6 Tritanium with a 9 mm, X3 polyethylene, cruciate retaining spacer. The patella was a size 38 mm asymmetric Tritanium backed. The patient was brought to the clean-air operating suite after administration of a regional anesthetic by adductor canal block. A spinal anesthetic was administered. The position was supine with a small bolster under the hip on the operative side. A pneumatic tourniquet was applied to the upper thigh. The lower extremity was prepped with alcohol, Hibiclens and ChloraPrep and draped in the usual manner with the knee draped free. An appropriate timeout procedure was carried out. An incision was made from about 3 fingerbreadths above the superior medial pole of patella down the tibial tubercle on the medial side. The incision was deepened through the subcutaneous tissue to the retinacular structures which were exposed medially and laterally. A medial retinacular incision was made from the superior medial pole of patella down the tibial tubercle and up into the quadriceps tendon, splitting it longitudinally in the medial one third. The patella was reflected. The infrapatellar fat pad was debulked. The anterior cruciate ligament was excised. Medial and lateral meniscectomies were initiated. Fenestrations were made in the distal femur and proximal tibia for intramedullary referencing guides. The distal femoral cutting guide and jig were assembled for a 5, 8 mm cut. When this was fit into position,the cutting block was stabilized with pins. The jig was removed. The distal femoral cut was completed with the oscillating saw. The sizing guide was positioned in place along Whitesides line and the epicondylar axis and stabilized with pins. The femoral size was determined as noted above. The 4-in-1 cutting block was positioned in place. Anterior and posterior cuts were made followed by posterior and anterior chamfer cuts taking care to prevent injury to ligamentous structures. Osteophytes were trimmed from the distal femur. A bone plug was placed into the fenestration of the distal femur. The proximal tibia was exposed. The medial and lateral meniscectomies were completed. The proximal tibial cutting guide was positioned in place and stabilized with a pin for rotation. The depth of cut was verified with a stylus off the high side. The cutting block was stabilized with pins. The jig was removed. The depth of cut was verified and adjusted appropriately with the use of the spacer block. The proximal tibial cut was made with the oscillating saw taking care to prevent injury to neurovascular and ligamentous structures. Proximal tibial bone was removed. Local anesthetic was administered with Exparel in the posterior capsule. The tibial baseplate trial was positioned in place. After verifying the appropriate size, the base plate trial was positioned in place along with its spacer. The femoral component was impacted into place. The alignment was checked. The tibial baseplate was pinned in place on the tibia. Attention was directed to the patella. The patella drill guide was positioned in place for the appropriate sized patella. Patellar drilling was then carried out. The trial patella was positioned in place. The knee was taken through a range of motion which was easily 0 extension to 150. The patella trial was removed. The femoral drill holes were made. The femoral trials were removed. The tibial spacer was removed. A bone plug was placed into the proximal tibia. The tibial punch was impacted through the proximal tibial punch guide. This was all removed followed by placement of the tibial drill guide. The tibial drill holes were made. The guide was removed. The cut ends of bone were cleaned with pulse lavage. The tibial baseplate was impacted into place and seated appropriately. The spacer was inserted. The the femoral component was impacted into place and seated appropriately. The patella component was seated with the patellar vice and tightened appropriately. The knee was taken through a range of motion which was comparable to the previous range of motion with excellent stability in flexion and extension and appropriate patellofemoral tracking. The remainder of the Exparel was injected throughout the knee as a local anesthetic. Drains were brought out the superior lateral aspect of the suprapatellar pouch. Wound closure commenced using 0 Vicryl interrupted [id number] sutures for the capsular and fascial structures, 2-0 Vicryl interrupted simple sutures with buried knots for the subcutaneous tissues and 4-0 Monocryl, continuous subcuticular closure for the skin. The wound was dressed with Dermabond Prineo followed by a dry sterile dressing. Sterile soft roll with a cooling pad and Kirk bandage from the base of the toes to mid thigh were applied. Patient was transferred from the operating room to the recovery room in satisfactory condition having tolerated procedure well. Counts were correct. Specimens: None. Estimated blood loss: 250 mL
--- NOTE | 2017-11-25 12:37 | P.DCO ---
- Physical Therapy Physical Therapy: Gait training Knee: Total knee, Protocol: Right, Gait training, Full weight bearing Right Lower Extremity Weight Bearing: Weight bearing as tolerated Right Lower Extremity Range of Motion: Active ROM (Active, active assisted, passive range of motion. Range of motion goal is 0 extension to 135 of flexion. Range of motion achieved in the operating room was 0 extension to 150 of flexion.) - Nursing Nursing: Dressing changes Dressing changes: Daily dressing change, Coverderm/Primapore Additional instructions: Do not remove Dermabond Prineo. - Certification Need for Home Health services: I have seen patient Miah Guajardo on 11/25/17. My clinical findings support the need for the requested home health care services because: Need for Home Health Services: Deconditioned with increased weakness, Limited ability to care for self, High risk of falls Homebound Certification: I certify that my clinical findings support that this patient is homebound because: Homebound Certification: Post-op weakness, Unsteady gait/balance, Unsafe to leave home unassisted
[2017-11-25] MEDS ORDERED: Aluminum/Magnesium/Simethacone Susp 30 ML UDC PO PRN (12:41)
[2017-11-25] MEDS ORDERED: Morphine Inj 4 MG/ML Vial IV.PUSH PRN (12:41)
[2017-11-25] MEDS ORDERED: Bisacodyl 10 MG Supp RECTAL PRN (12:41)
[2017-11-25] MEDS ORDERED: Post-op Orders (for Pharmacy) OTHER STA (12:41)
[2017-11-25] MEDS ORDERED: Tranexamic Acid Inj 0 MG in Sodium Chlor 0.9% Inj 100 ML IV.SIG ONE (12:41)
[2017-11-25] MEDS ORDERED: Acetaminophen 325 MG Tablet PO PRN (12:41)
[2017-11-25] MEDS ORDERED: *morphine SULFATE 4 MG/ML PERIprocedure ONLY ONE (13:38)
[2017-11-25] MEDS ORDERED: Ketorolac Inj 30 MG/ML (IVP) Vial ONE (13:54)
[2017-11-25] MEDS ORDERED: PROAIR RESPICLICK INH PRN (14:30)
[2017-11-25] MEDS ORDERED: ARNUITY ELLIPTA INH PRN (14:30)
[2017-11-25] MEDS ORDERED: guaiFENesin 600 MG ER Tablet PO PRN (14:45)
--- NOTE | 2017-11-25 14:50 | XR ---
EXAM DATE: 11/25/2017 2:13 PM EDT AGE/SEX: 87 years / Male INDICATIONS: Post op right knee. CLINICAL DATA: This is the patient's initial encounter. Patient reports that signs and symptoms have been present for 1 day and indicates a pain score of Nonresponsive. MEDICAL/SURGICAL HISTORY: None. None. COMPARISON: TLI, XR KNEE COMPLETE, RIGHT, 02/11/2017. . FINDINGS: 2 view right knee demonstrates patient's had at her knee arthroplasty. There is no evidence of fractu re. No lytic or blastic lesions identified. CONCLUSION: Status post total knee arthroplasty in excellent position Electronically signed by: Rikki Gayle MD 11/25/2017 2:49 PM EDT
--- NOTE | 2017-11-25 15:27 | P.CON ---
History of Present Illness Requesting Physician: David Waite Reason for Consult: Medical management Primary Care Provider: Timo Dodson MD Family Provider: Timo Dodson MD Chief Complaint: Scheduled Right Total knee arthroplasty History of Present Illness: This is a pleasant 87 y/o Male who has history of Bradycardia, his baseline is 50 per min. already cleared by cardiology specialist for procedure. as we know he has Anxiety disorder, Dementia, Cataracts, Cervical stenosis, BPH, Iron deficiency anemia, Arthritis Peripheral Neuropathy hands and feet. today status post Right total Knee arthroplasty, his and nurse by his side, no complaint. Review of Systems All other systems reviewed negative except as stated in HPI PMFSH - History History Provided By: Patient, Significant Other - Medical History Medical History: Medical History (Last Updated 11/25/17 @ 09:01 by Breezy Crowley RN) GI bleed Bradycardia Dementia GERD (gastroesophageal reflux disease) Glaucoma Hx of lipoma Neuropathy Uses hearing aid - Surgical History Surgical History: Surgical History (Last Updated 11/25/17 @ 08:42 by Breezy Crowley, RN) Hx of cataract surgery Hx of eye surgery Hx of shoulder surgery - Family History Family History: Family History (Last Updated 11/25/17 @ 15:27 by Jerman De Santiago MD) Father Family history of acute myocardial infarction - Tobacco History Second Hand Smoke Exposure: No Tobacco Use In Past 30 Days: No Smoking Status: Former smoker - Alcohol History How Often Do You Have a Drink Containing Alcohol: 2 to 4 times a month - Substance Use History Substance History: No History of Abuse - Travel History Recent Travel in the [place] Within the Last 8 Weeks: No Recent Travel Out of the Country Within the Last 8 Weeks: Yes Medications and Allergies Active Medications: Active Medications Acetaminophen (Tylenol) 650 mg PO Q6H PRN PRN Reason: Pain Less Than 3 On Scale Hydrocodone Bitart/Acetaminophen ([place] 7.5/325) 2 tab PO Q6H PRN PRN Reason: PAIN SCALE 7 TO 10 SEVERE Hydrocodone Bitart/Acetaminophen ([place] 7.5/325) 1 tab PO Q4H PRN PRN Reason: PAIN SCALE 4 TO 6 MODERATE Al Hydrox/Mg Hydrox/Simethicone (Mag-Al Plus Susp Liq) 30 ml PO Q6H PRN PRN Reason: INDIGESTION Al Hydroxide/Mg Hydroxide (Milk Of Magnesia Liq) 30 ml PO BID PRN PRN Reason: Mild Constipation Alprazolam (Xanax) 0.5 mg PO TID PRN PRN Reason: AGITATION Aspirin (Aspirin Chew) 81 mg PO BID [facility] Atorvastatin Calcium (Lipitor) 20 mg PO DAILY [facility] Betaxolol HCl (Betaxolol 0.5% Opth Drops) 2 drop EACH EYE BID [facility] Bisacodyl (Dulcolax Supp) 10 mg RECTAL DAILY PRN PRN Reason: SEVERE CONSITIPATION Calcium Carbonate (Oscal) 500 mg PO DAILY [facility] Cetirizine HCl (Zyrtec) 10 mg PO DAILY [facility] Chlorhexidine Gluconate (Hibiclens 4% Topical) 1 applicatio TOPICAL ONCE [facility] Stop: 11/29/17 08:29 Diphenhydramine HCl (Benadryl) 25 mg PO Q6H PRN PRN Reason: ITCHING Donepezil HCl (Aricept) 5 mg PO BID [facility] Ferrous Sulfate (Ferosul) 325 mg PO DAILY [facility] Guaifenesin (Mucinex Er) 1,200 mg PO DAILY PRN PRN Reason: PHLEGM BUILDUP Lactated Ringer's (Lr 1000 Ml Inj) 1,000 mls @ 30 mls/hr IV.CONT .Q24H ONE Stop: 11/26/17 08:29 Last Infusion: 11/25/17 12:53 Dose: Infused Sodium Chloride (Ns Inj) 500 mls @ 30 mls/hr IV.CONT .[id number] ONE Stop: 11/26/17 01:09 Cefazolin Sodium/Dextrose (Ancef 2 Gm Premix Inj) 2 gm in 50 mls @ 100 mls/hr IV.SIG POLICY SPECIALIST [facility] Stop: 11/25/17 23:00 Last Infusion: 11/25/17 11:39 Dose: Infused Tranexamic Acid 702 mg/ Sodium (Chloride) 107.02 mls @ 200 mls/hr IV.SIG ONCE [facility] Stop: 11/25/17 18:00 Cefazolin Sodium 1,000 mg/ (Sodium Chloride) 100 mls @ 200 mls/hr IV.SIG Q6H [facility] Stop: 11/26/17 05:29 Lactated Ringer's (Lr 1000 Ml Inj) 1,000 mls @ 80 mls/hr IV.CONT .[id number] [facility] Last Admin: 11/25/17 13:05 Dose: 80 mls/hr Ketorolac Tromethamine (Toradol Inj) 15 mg IV.PUSH Q6H [facility] Stop: 11/27/17 09:01 Lactulose (Lactulose Liq) 30 ml PO DAILY PRN PRN Reason: SEVERE CONSITIPATION Miscellaneous Information ([facility] Information) 1 each OTHER UNSCH PRN PRN Reason: SEE LABEL COMMENTS Stop: 11/26/17 12:54 Morphine Sulfate (Morphine Inj) 2 mg IV.PUSH Q3H PRN PRN Reason: BREAKTHROUGH PAIN Ondansetron HCl (Zofran Odt) 4 mg PO Q6H PRN PRN Reason: NAUSEA OR VOMITING Pantoprazole Sodium (Protonix) 40 mg PO DAILY [facility] Patient Own Medication: Ascorbic Acid 100mg By Mouth Daily. 0 each PO DAILY [facility] Patient Own Medication: Azopt ( Brinzolamide) 1% Opthalmic Suspension 0 each EACH EYE BID [facility] Patient Own Medication: Arnuity Ellipta (Fluticasone Furoate) 50mcg/Actuation 0 each INH BID PRN PRN Reason: SEE LABEL COMMENTS Patient Own Medication: Magnesium Oxide 500mg Tablet 0 each PO DAILY [facility] Patient Own Medication: Proair Respiclick ( Albuterol Sulfate) 90mcg/Act Aerosol Powder 0 each INH Q4H PRN PRN Reason: SHORTNESS OF BREATH Polyethylene Glycol (Miralax) 17 gm PO EVERY OTHER DAY [facility] Senna/Docusate Sodium (Hallie-Colace) 1 tab PO BID [facility] Sennosides (Senokot) 17.2 mg PO BID PRN PRN Reason: Moderate Constipation Sodium Chloride (Ns Flush) 2 ml IV.FLUSH BID [facility] Sodium Chloride (Ns Flush) 2 ml IV.FLUSH UNSCH PRN PRN Reason: FLUSH AFTER USING IV ACCESS Zolpidem Tartrate (Ambien) 5 mg PO HS PRN PRN Reason: INSOMNIA Allergies Allergy/AdvReac Type Severity Reaction Status Date / Time gabapentin AdvReac Confusion Verified 11/11/17 12:07 memantine [From Namenda] AdvReac Confusion Verified 11/25/17 08:44 NSAIDS (Non-Steroidal AdvReac Bleeding Verified 11/25/17 09:01 Anti-Inflamma Home Medications Medication Instructions Recorded Confirmed Type albuterol sulfate [ProAir 2 puff INHALATION Q4H PRN 11/11/17 11/25/17 History RespiClick] alprazolam 0.5 mg PO TID PRN 11/11/17 11/25/17 History ascorbic acid (vitamin C) [Vitamin 100 mg PO DAILY 11/11/17 11/25/17 History C] atorvastatin 20 mg PO DAILY 11/11/17 11/25/17 History brinzolamide [Azopt] 1 drp OPHTHALMIC (EYE) BID 11/11/17 11/25/17 History calcium carbonate [Calcium 500] 500 mg PO DAILY 11/11/17 11/25/17 History cetirizine [Zyrtec] 10 mg PO DAILY 11/11/17 11/25/17 History donepezil 5 mg PO BID 11/11/17 11/25/17 History ferrous sulfate 325 mg PO DAILY 11/11/17 11/25/17 History fluticasone furoate 1 inh INHALATION BID PRN 11/11/17 11/25/17 History guaifenesin [Mucinex] 1,200 mg PO DAILY PRN 11/11/17 11/25/17 History hydrocodone-acetaminophen 1 tab PO Q4-6H PRN 11/11/17 11/25/17 History magnesium oxide 500 mg PO DAILY 11/11/17 11/25/17 History omega 6-qjp-rne-fish oil [Fish Oil] 1 cap PO DAILY 11/11/17 11/25/17 History pantoprazole 40 mg PO DAILY 11/11/17 11/25/17 History polyethylene glycol 3350 [Miralax] 17 g PO EVERY OTHER DAY 11/11/17 11/25/17 History betaxolol 2 drp OPHTHALMIC (EYE) BID 11/25/17 11/25/17 History Physical Exam Vital signs: Vital Signs 11/25/17 09:02 11/25/17 09:38 11/25/17 09:50 Temperature 97.9 F Pulse Rate 44 L 34 L 34 L Respiratory Rate 20 Blood Pressure 154/64 H 169/74 H Pulse Oximetry 98 93 L 11/25/17 12:54 11/25/17 13:00 11/25/17 13:05 Temperature 96 F L Pulse Rate 103 H 105 H Respiratory Rate 14 18 Blood Pressure 176/86 H 177/88 H Pulse Oximetry 100 99 99 11/25/17 13:15 11/25/17 13:30 11/25/17 13:45 Temperature Pulse Rate 85 85 74 Respiratory Rate 10 L 12 22 Blood Pressure 176/85 H 162/79 H 161/82 H Pulse Oximetry 99 99 98 11/25/17 14:00 Temperature Pulse Rate 66 Respiratory Rate 18 Blood Pressure 167/89 H Pulse Oximetry 99 Intake & Output 11/24/17 11/25/17 11/25/17 18:59 06:59 18:59 Intake Total 2157.02 / 2157.02 Output Total 250 / 250 Balance 1907.02 / 1907.02 Weight 70.2 kg Intake: IV 1157.02 / 1157.02 LR 1000 mL Inj 1,000 ML @ 30 1000 / 1000 mls/hr IV.CONT .Q24H [facility] Rx#: [id number] Cyklokapron Inj 702 MG In NS 107.02 / 107.02 Inj 100 ML @ 200 mls/hr IV.SIG ONCE [facility] Rx#:[id number] Ancef 2 GM Premix Inj 2 gm In 50 / 50 50 ml @ 100 mls/hr IV.SIG POLICY SPECIALIST [facility] Rx#:[id number] Anesthesia Amount 1000 / 1000 Output: Estimated Blood Loss 250 / 250 Other: Weight On Admission 70.2 kg Narrative: GENERAL: This is a well-nourished, well-developed patient, in no apparent distress. SKIN: Cool and dry. HEAD: Atraumatic. Normocephalic. EYES: Pupils equal round. ENT: Nose without bleeding, purulent drainage or septal hematoma. Airway patent. NECK: Trachea midline. No JVD. Supple, nontender, no meningeal signs. CARDIOVASCULAR: Bradycardia. Normal rhythm without murmurs, gallops, or rubs. RESPIRATORY: Clear to auscultation. Breath sounds equal bilaterally. No wheezes , rales, or rhonchi. GASTROINTESTINAL: Abdomen soft, non-tender, nondistended. No hepato-splenomegaly , or palpable masses. No guarding. MUSCULOSKELETAL: Right knee with Orthotics, Hemovac in place. NEUROLOGICAL: Awake and alert. Cranial nerves II through XII intact. Motor and sensory grossly within normal limits. Normal speech. Assessment and Plan - Plan 1. Chronic Severe OA status post Right Total knee arthroplasty, Orthopedic surgery following PT, regional loss prevention manager for discharge, Pain medicine. already walked after surgery 2. Sick sinus syndrome status post evaluation by Doctor Dangelo Barakat recommended for no Pacemaker needed at this time. had severe bradycardia during surgery 3. Anxiety disorder to continue Home medicines 4. Glaucoma by history, continue Home medicines 5. Gout to continue Home medicines 6. Dementia/Alzheimer's Type stable 7. CKD III his Creatinine previous to admission 1.82 with GFR 35 following DVT prophylaxis as per Surgical team. Code Status: Full code. Discussed Condition With: Patient, and nurse. Discharge Planning: As per Attending Physician.
[2017-11-25] MEDS: Ketorolac Inj 30 MG/ML (IVP) Vial IV.PUSH SCH ×2 (15:58→20:19)
--- NOTE | 2017-11-25 16:49 | P.CONCA ---
History of Present Illness Service: cardiology Consult date: 11/25/17 Reason for Consult: Post op Total knee. Evaluation and f/u cardiac disease Primary Care Provider: Timo Dodson MD Family Provider: Timo Dodson MD Chief Complaint: Scheduled Right Total knee arthroplasty History of Present Illness: This is an 86-year-old male known to Dr. Barakat who presented to [facility] for right total knee arthroplasty. He has a history of chest pain, TIA, sick sinus syndrome, peripheral neuropathy, dyslipidemia, mitral regurgitation, aortic insufficiency, nonrheumatic tricuspid insufficiency and anemia. He is status post total knee, denies any chest pain, pressure, palpitations, edema or shortness of breath. He is in PACU recovering from surgery and is still a little drowsy from anesthesia. Prior to surgery he had a heart rate in 30s-40s asymptomatic and is currently 66 with mild hypertension. Review of Systems All other systems reviewed negative except as stated in HPI PMFSH - History History Provided By: Patient, Significant Other - Medical History Medical History: Medical History (Last Reviewed 11/25/17 @ 16:27 by Naheed Menendez RN) GI bleed Bradycardia Dementia GERD (gastroesophageal reflux disease) Glaucoma Hx of lipoma Neuropathy Uses hearing aid - Surgical History Surgical History: Surgical History (Last Reviewed 11/25/17 @ 16:27 by Naheed Menendez RN) Hx of cataract surgery Hx of eye surgery Hx of shoulder surgery - Family History Family History: Family History (Last Updated 11/25/17 @ 15:27 by Jerman De Santiago MD) Father Family history of acute myocardial infarction - Tobacco History Second Hand Smoke Exposure: No Tobacco Use In Past 30 Days: No Smoking Status: Former smoker - Alcohol History How Often Do You Have a Drink Containing Alcohol: 2 to 4 times a month - Substance Use History Substance History: No History of Abuse - Travel History Recent Travel in the [place] Within the Last 8 Weeks: No Recent Travel Out of the Country Within the Last 8 Weeks: Yes Medications and Allergies Allergies Allergy/AdvReac Type Severity Reaction Status Date / Time gabapentin AdvReac Confusion Verified 11/11/17 12:07 memantine [From Namenda] AdvReac Confusion Verified 11/25/17 08:44 NSAIDS (Non-Steroidal AdvReac Bleeding Verified 11/25/17 09:01 Anti-Inflamma Home Medications Medication Instructions Recorded Confirmed Type albuterol sulfate [ProAir 2 puff INHALATION Q4H PRN 11/11/17 11/25/17 History RespiClick] alprazolam 0.5 mg PO TID PRN 11/11/17 11/25/17 History ascorbic acid (vitamin C) [Vitamin 100 mg PO DAILY 11/11/17 11/25/17 History C] atorvastatin 20 mg PO DAILY 11/11/17 11/25/17 History brinzolamide [Azopt] 1 drp OPHTHALMIC (EYE) BID 11/11/17 11/25/17 History calcium carbonate [Calcium 500] 500 mg PO DAILY 11/11/17 11/25/17 History cetirizine [Zyrtec] 10 mg PO DAILY 11/11/17 11/25/17 History donepezil 5 mg PO BID 11/11/17 11/25/17 History ferrous sulfate 325 mg PO DAILY 11/11/17 11/25/17 History fluticasone furoate 1 inh INHALATION BID PRN 11/11/17 11/25/17 History guaifenesin [Mucinex] 1,200 mg PO DAILY PRN 11/11/17 11/25/17 History hydrocodone-acetaminophen 1 tab PO Q4-6H PRN 11/11/17 11/25/17 History magnesium oxide 500 mg PO DAILY 11/11/17 11/25/17 History omega 1-tfl-vpv-fish oil [Fish Oil] 1 cap PO DAILY 11/11/17 11/25/17 History pantoprazole 40 mg PO DAILY 11/11/17 11/25/17 History polyethylene glycol 3350 [Miralax] 17 g PO EVERY OTHER DAY 11/11/17 11/25/17 History betaxolol 2 drp OPHTHALMIC (EYE) BID 11/25/17 11/25/17 History Active Medications: Active Medications Acetaminophen (Tylenol) 650 mg PO Q6H PRN PRN Reason: Pain Less Than 3 On Scale Hydrocodone Bitart/Acetaminophen ([place] 7.5/325) 2 tab PO Q6H PRN PRN Reason: PAIN SCALE 7 TO 10 SEVERE Hydrocodone Bitart/Acetaminophen ([place] 7.5/325) 1 tab PO Q4H PRN PRN Reason: PAIN SCALE 4 TO 6 MODERATE Al Hydrox/Mg Hydrox/Simethicone (Mag-Al Plus Susp Liq) 30 ml PO Q6H PRN PRN Reason: INDIGESTION Al Hydroxide/Mg Hydroxide (Milk Of Magnesia Liq) 30 ml PO BID PRN PRN Reason: Mild Constipation Alprazolam (Xanax) 0.5 mg PO TID PRN PRN Reason: AGITATION Aspirin (Aspirin Chew) 81 mg PO BID [facility] Atorvastatin Calcium (Lipitor) 20 mg PO DAILY [facility] Betaxolol HCl (Betaxolol 0.5% Opth Drops) 2 drop EACH EYE BID [facility] Bisacodyl (Dulcolax Supp) 10 mg RECTAL DAILY PRN PRN Reason: SEVERE CONSITIPATION Calcium Carbonate (Oscal) 500 mg PO DAILY [facility] Cetirizine HCl (Zyrtec) 10 mg PO DAILY [facility] Chlorhexidine Gluconate (Hibiclens 4% Topical) 1 applicatio TOPICAL ONCE [facility] Stop: 11/29/17 08:29 Diphenhydramine HCl (Benadryl) 25 mg PO Q6H PRN PRN Reason: ITCHING Donepezil HCl (Aricept) 5 mg PO BID [facility] Ferrous Sulfate (Ferosul) 325 mg PO DAILY [facility] Guaifenesin (Mucinex Er) 1,200 mg PO DAILY PRN PRN Reason: PHLEGM BUILDUP Lactated Ringer's (Lr 1000 Ml Inj) 1,000 mls @ 30 mls/hr IV.CONT .Q24H ONE Stop: 11/26/17 08:29 Last Infusion: 11/25/17 12:53 Dose: Infused Sodium Chloride (Ns Inj) 500 mls @ 30 mls/hr IV.CONT .[id number] ONE Stop: 11/26/17 01:09 Cefazolin Sodium/Dextrose (Ancef 2 Gm Premix Inj) 2 gm in 50 mls @ 100 mls/hr IV.SIG BUSINESS ANALYST SALES OPERATIONS [facility] Stop: 11/25/17 23:00 Last Infusion: 11/25/17 11:39 Dose: Infused Tranexamic Acid 702 mg/ Sodium (Chloride) 107.02 mls @ 200 mls/hr IV.SIG ONCE [facility] Stop: 11/25/17 18:00 Cefazolin Sodium 1,000 mg/ (Sodium Chloride) 100 mls @ 200 mls/hr IV.SIG Q6H [facility] Stop: 11/26/17 05:29 Lactated Ringer's (Lr 1000 Ml Inj) 1,000 mls @ 80 mls/hr IV.CONT .[id number] [facility] Last Admin: 11/25/17 13:05 Dose: 80 mls/hr Ketorolac Tromethamine (Toradol Inj) 15 mg IV.PUSH Q6H [facility] Stop: 11/27/17 09:01 Last Admin: 11/25/17 15:58 Dose: Not Given Lactulose (Lactulose Liq) 30 ml PO DAILY PRN PRN Reason: SEVERE CONSITIPATION Miscellaneous Information ([facility]) 1 each OTHER UNSCH PRN PRN Reason: SEE LABEL COMMENTS Stop: 11/26/17 12:54 Morphine Sulfate (Morphine Inj) 2 mg IV.PUSH Q3H PRN PRN Reason: BREAKTHROUGH PAIN Ondansetron HCl (Zofran Odt) 4 mg PO Q6H PRN PRN Reason: NAUSEA OR VOMITING Pantoprazole Sodium (Protonix) 40 mg PO DAILY [facility] Patient Own Medication: Ascorbic Acid 100mg By Mouth Daily. 0 each PO DAILY [facility] Patient Own Medication: Azopt ( Brinzolamide) 1% Opthalmic Suspension 0 each EACH EYE BID [facility] Patient Own Medication: Arnuity Ellipta (Fluticasone Furoate) 50mcg/Actuation 0 each INH BID PRN PRN Reason: SEE LABEL COMMENTS Patient Own Medication: Magnesium Oxide 500mg Tablet 0 each PO DAILY [facility] Patient Own Medication: Proair Respiclick ( Albuterol Sulfate) 90mcg/Act Aerosol Powder 0 each INH Q4H PRN PRN Reason: SHORTNESS OF BREATH Polyethylene Glycol (Miralax) 17 gm PO EVERY OTHER DAY [facility] Senna/Docusate Sodium (Hallie-Colace) 1 tab PO BID [facility] Sennosides (Senokot) 17.2 mg PO BID PRN PRN Reason: Moderate Constipation Sodium Chloride (Ns Flush) 2 ml IV.FLUSH BID [facility] Sodium Chloride (Ns Flush) 2 ml IV.FLUSH UNSCH PRN PRN Reason: FLUSH AFTER USING IV ACCESS Zolpidem Tartrate (Ambien) 5 mg PO HS PRN PRN Reason: INSOMNIA Exam Vital signs: Vital Signs 11/25/17 09:02 11/25/17 09:38 11/25/17 09:50 Temperature 97.9 F Pulse Rate 44 L 34 L 34 L Respiratory Rate 20 Blood Pressure 154/64 H 169/74 H Pulse Oximetry 98 93 L 11/25/17 12:54 11/25/17 13:00 11/25/17 13:05 Temperature 96 F L Pulse Rate 103 H 105 H Respiratory Rate 14 18 Blood Pressure 176/86 H 177/88 H Pulse Oximetry 100 99 99 11/25/17 13:15 11/25/17 13:30 11/25/17 13:45 Temperature Pulse Rate 85 85 74 Respiratory Rate 10 L 12 22 Blood Pressure 176/85 H 162/79 H 161/82 H Pulse Oximetry 99 99 98 11/25/17 14:00 Temperature Pulse Rate 66 Respiratory Rate 18 Blood Pressure 167/89 H Pulse Oximetry 99 Intake & Output 11/24/17 11/25/17 11/25/17 18:59 06:59 18:59 Intake Total 2157.02 / 2157.02 Output Total 250 / 250 Balance 1907.02 / 1907.02 Weight 70.2 kg Intake: IV 1157.02 / 1157.02 LR 1000 mL Inj 1,000 ML @ 30 1000 / 1000 mls/hr IV.CONT .Q24H [facility] Rx#: [id number] Cyklokapron Inj 702 MG In NS 107.02 / 107.02 Inj 100 ML @ 200 mls/hr IV.SIG ONCE [facility] Rx#:[id number] Ancef 2 GM Premix Inj 2 gm In 50 / 50 50 ml @ 100 mls/hr IV.SIG BUSINESS ANALYST SALES OPERATIONS [facility] Rx#:[id number] Anesthesia Amount 1000 / 1000 Output: Estimated Blood Loss 250 / 250 Other: Weight On Admission 70.2 kg Narrative: GENERAL: This is a well-nourished, well-developed patient, in no apparent distress. Patient speaks in clear complete sentences. Patient is pleasant. HEENT: Head is atraumatic and normocephalic. Neck is supple without lymphadenopathy and trachea is midline. No JVD or carotid bruits. CARDIOVASCULAR: Regular rate and rhythm without murmurs, gallops, or rubs. RESPIRATORY: Clear to auscultation. Breath sounds equal bilaterally. No wheezes , rales, or rhonchi. Chest wall is nontender. No use of accessory muscles. GASTROINTESTINAL: Abdomen is nontender, nondistended. Abdomen soft. No obvious pulsatile mass or bruit. No CVA tenderness. Strong femoral pulses bilaterally. Normal bowel sounds in all quadrants. MUSCULOSKELETAL: Status post right total knee replacement. No calf tenderness or edema, no Homans sign. Strong pulses in upper and lower extremities. NEUROLOGICAL: Mild drowsiness due to anesthesia. Cranial nerves 2-12 are grossly intact. No focal deficits and speech is clear. SKIN: No rash and turgor is normal. Results Intake and Output 11/25/17 11/25/17 11/25/17 06:59 14:59 22:59 Intake Total 2157.02 / 2157.02 Output Total 250 / 250 Balance 1907.02 / 1907.02 Intake: IV 1157.02 / 1157.02 LR 1000 mL Inj 1,000 ML @ 30 1000 / 1000 mls/hr IV.CONT .Q24H [facility] Rx#: [id number] Cyklokapron Inj 702 MG In NS 107.02 / 107.02 Inj 100 ML @ 200 mls/hr IV.SIG ONCE [facility] Rx#:[id number] Ancef 2 GM Premix Inj 2 gm In 50 / 50 50 ml @ 100 mls/hr IV.SIG BUSINESS ANALYST SALES [employer]PERATIONS [facility] Rx#:[id number] Anesthesia Amount 1000 / 1000 Output: Estimated Blood Loss 250 / 250 Other: Weight 70.2 kg Weight On Admission 70.2 kg Patient Weight 11/26/17 06:59 Weight 70.2 kg - Imaging and Cardiology Imaging: Impressions Knee X-Ray 11/25/17 12:38 CONCLUSION: Status post total knee arthroplasty in excellent position Assessment and Plan - Assessment (1) Bradycardia Code(s): R00.1 - Bradycardia, unspecified Status: Acute (2) Status post total right knee replacement not using cement Code(s): Z96.651 - Presence of right artificial knee joint Status: Acute - Plan Patient is sinus rhythm on the monitor currently, continue with current cardiac treatment plan. There is no indication for pacemaker placement at this time, we will continue to monitor. Okay to DC home tomorrow from a cardiac standpoint, if he remains stable. Will follow up with patient in our office post discharge. Patient was seen and evaluated by Dr. Barakat who participated in care, management and decision-making. - Attending Attestation Patient seen and examined. I reviewed and agree with the evaluation and plan as presented. He tolerated his surgery well. Tele with NSR. Monitor overnight. DC home tomorrow if he remains stable.
[2017-11-25] MEDS: ALPRAZolam 0.5 MG Tablet PO PRN (20:16)
[2017-11-25] MEDS: Senna/Docusate Sodium 8.6/50 MG Tablet PO SCH (20:18)
[2017-11-25] MEDS: Sodium Chloride 0.9% 2 ML Flush BID IV.FLUSH SCH (20:19)
[2017-11-25] MEDS ORDERED: Zolpidem Tartrate 5 MG Tablet PO PRN (21:00)
[2017-11-26] MEDS: OPTH EACH EYE SCH ×3 (03:50→21:33)
[2017-11-26] MEDS: BETAXOLOL 0.5% EACH EYE SCH ×3 (03:50→21:33)
[2017-11-26] MEDS: Ketorolac Inj 30 MG/ML (IVP) Vial IV.PUSH SCH ×5 (03:51→21:33)
[2017-11-26 06:19] LABS: Hemoglobin 11.1 gm/dL (13.0-17.0)
--- NOTE | 2017-11-26 06:29 | P.PNOP ---
Subjective Interval history: Postop day #1 He has had some difficulty with voiding. He also indicates that he has not moved his bowels since he has been in the hospital. He has almost no complaints related to the knee. Nursing has reported the above to me. He has also had some problems with the sequentials and the cooling pad. Physical therapy reports that the ambulation distance was about 4 steps in recovery. The range of motion was -10 extension to 80 of flexion. Physical Exam Vital signs: Vital Signs 11/25/17 09:02 11/25/17 09:38 11/25/17 09:50 Temperature 97.9 F Pulse Rate 44 L 34 L 34 L Respiratory Rate 20 Blood Pressure 154/64 H 169/74 H Pulse Oximetry 98 93 L 11/25/17 12:54 11/25/17 13:00 11/25/17 13:05 Temperature 96 F L Pulse Rate 103 H 105 H Respiratory Rate 14 18 Blood Pressure 176/86 H 177/88 H Pulse Oximetry 100 99 99 11/25/17 13:15 11/25/17 13:30 11/25/17 13:45 Temperature Pulse Rate 85 85 74 Respiratory Rate 10 L 12 22 Blood Pressure 176/85 H 162/79 H 161/82 H Pulse Oximetry 99 99 98 11/25/17 14:00 11/25/17 14:15 11/25/17 14:30 Temperature Pulse Rate 66 69 66 Respiratory Rate 18 17 19 Blood Pressure 167/89 H 168/84 H 158/86 H Pulse Oximetry 99 96 97 11/25/17 15:30 11/25/17 16:00 11/25/17 20:00 Temperature 97.5 F L 97.9 F Pulse Rate 60 53 L 67 Respiratory Rate 24 18 18 Blood Pressure 167/77 H 165/73 H 144/75 H Pulse Oximetry 97 97 97 11/26/17 00:00 Temperature 97.4 F L Pulse Rate 62 Respiratory Rate 17 Blood Pressure 150/65 H Pulse Oximetry 95 Intake & Output 11/25/17 11/25/17 11/26/17 06:59 18:59 06:59 Intake Total 2737.02 / 2737.02 100 / 100 Output Total 460 / 460 200 / 200 Balance 2277.02 / 2277.02 -100 / -100 Weight 70.2 kg Intake: IV 1257.02 / 1257.02 100 / 100 LR 1000 mL Inj 1,000 ML @ 30 1000 / 1000 mls/hr IV.CONT .Q24H ONE Rx#: [id number] Cyklokapron Inj 702 MG In NS 107.02 / 107.02 Inj 100 ML @ 200 mls/hr IV.SIG ONCE [facility] Rx#:[id number] Ancef 2 GM Premix Inj 2 gm In 50 / 50 50 ml @ 100 mls/hr IV.SIG CHIE[employer] WARDEN DOUG Rx#:[id number] Ancef Inj 1,000 MG In NS Inj 100 / 100 100 / 100 100 ML @ 200 mls/hr IV.SIG Q6H [facility] Rx#:[id number] Oral 480 / 480 Anesthesia Amount 1000 / 1000 Output: Urine 0 / 0 Estimated Blood Loss 250 / 250 Wound Drainage 210 / 210 200 / 200 # 1 Right Knee Hemovac 210 / 210 200 / 200 Other: Date of Last Bowel Movement 11/24/17 11/24/17 Weight On Admission 70.2 kg Narrative: He is resting comfortably, supine in bed. The dressing is dry and intact. His neurovascular status is intact. Results - Labs CBC & Chem 7: 11/26/17 05:30 Laboratory Results - last 24 hr 11/25/17 11/26/17 09:00 05:30 Hgb 11.1 L Hct 34.0 L Blood Type A Positive Antibody Screen Negative - Imaging Impressions Knee X-Ray 11/25/17 12:38 CONCLUSION: Status post total knee arthroplasty in excellent position - Procedures Right total knee arthroplasty using [place] Triathlon prosthesis (uncemented) on 07/25/2017 Assessment and Plan - Ortho Post Op Day # 1 - Problem List (1) Status post total right knee replacement not using cement Code(s): Z96.651 - Presence of right artificial knee joint Status: Acute - Assessment and Plan Condition: Good. Orthopedically stable. DVT prophylaxis: TEDs, aspirin, sequentials. Discharge plans: Home with home health care. An appointment was scheduled through the office. Prescriptions: [place] 7.5/325; Patient is having significant pain caused by a total knee arthroplasty which will last more than 3 days. Trial of Tylenol has not helped. I believe that it is medically necessary to treat patients pain because it is affecting patients ability to participate in postoperative rehabilitation and perform activities of daily living in a comfortable and efficient manner. If his urinary retention persists, a urology consultation will be obtained.
[2017-11-26] MEDS: ALPRAZolam 0.5 MG Tablet PO PRN ×2 (07:19→15:28)
--- NOTE | 2017-11-26 08:28 | P.PN ---
Subjective Interval history: This is a pleasant 87 y/o Male who has history of Bradycardia, his baseline is 50 per min. already cleared by prescription benefit specialist for procedure. as we know he has Anxiety disorder, Dementia, Cataracts, Cervical stenosis, BPH, Iron deficiency anemia, Arthritis Peripheral Neuropathy hands and feet. today status post Right total Knee arthroplasty, his and nurse by his side, no complaint. 11/26: Seen in his bedroom, standing shaving himself, already recommended for discharge by Orthopedic surgery and Cardiology, no barriers from Medicine to discharge home. no nausea, vomit or diarrhea. Physical Exam Vital signs: Vital Signs 11/25/17 09:02 11/25/17 09:38 11/25/17 09:50 Temperature 97.9 F Pulse Rate 44 L 34 L 34 L Respiratory Rate 20 Blood Pressure 154/64 H 169/74 H Pulse Oximetry 98 93 L 11/25/17 12:54 11/25/17 13:00 11/25/17 13:05 Temperature 96 F L Pulse Rate 103 H 105 H Respiratory Rate 14 18 Blood Pressure 176/86 H 177/88 H Pulse Oximetry 100 99 99 11/25/17 13:15 11/25/17 13:30 11/25/17 13:45 Temperature Pulse Rate 85 85 74 Respiratory Rate 10 L 12 22 Blood Pressure 176/85 H 162/79 H 161/82 H Pulse Oximetry 99 99 98 11/25/17 14:00 11/25/17 14:15 11/25/17 14:30 Temperature Pulse Rate 66 69 66 Respiratory Rate 18 17 19 Blood Pressure 167/89 H 168/84 H 158/86 H Pulse Oximetry 99 96 97 11/25/17 15:30 11/25/17 16:00 11/25/17 20:00 Temperature 97.5 F L 97.9 F Pulse Rate 60 53 L 67 Respiratory Rate 24 18 18 Blood Pressure 167/77 H 165/73 H 144/75 H Pulse Oximetry 97 97 97 11/26/17 00:00 Temperature 97.4 F L Pulse Rate 62 Respiratory Rate 17 Blood Pressure 150/65 H Pulse Oximetry 95 Intake & Output 11/25/17 11/26/17 11/26/17 18:59 06:59 18:59 Intake Total 2737.02 / 2737.02 1200 / 1200 Output Total 460 / 460 200 / 200 Balance 2277.02 / 2277.02 1000 / 1000 Weight 70.2 kg 92 kg Intake: IV 1257.02 / 1257.02 1200 / 1200 LR 1000 mL Inj 1,000 ML @ 80 1000 / 1000 1000 / 1000 mls/hr IV.CONT .[id number] DOUG Rx# :[id number] Cyklokapron Inj 702 MG In NS 107.02 / 107.02 Inj 100 ML @ 200 mls/hr IV.SIG ONCE [facility]G Rx#:[id number] Ancef 2 GM Premix Inj 2 gm In 50 / 50 50 ml @ 100 mls/hr IV.SIG [employer] DOUG Rx#:[id number] Ancef Inj 1,000 MG In NS Inj 100 / 100 200 / 200 100 ML @ 200 mls/hr IV.SIG Q6H [facility]OU[facility] Rx#:[id number] Oral 480 / 480 Anesthesia Amount 1000 / 1000 Output: Urine 0 / 0 Estimated Blood Loss 250 / 250 Wound Drainage 210 / 210 200 / 200 # 1 Right Knee Hemovac 210 / 210 200 / 200 Other: # Voids 2 Date of Last Bowel Movement 11/24/17 11/24/17 Weight On Admission 70.2 kg Narrative: GENERAL: This is a well-nourished, well-developed patient, in no apparent distress. SKIN: Cool and dry. HEAD: Atraumatic. Normocephalic. EYES: Pupils equal round. ENT: Nose without bleeding, purulent drainage or septal hematoma. Airway patent. NECK: Trachea midline. No JVD. Supple, nontender, no meningeal signs. CARDIOVASCULAR: Bradycardia. Normal rhythm without murmurs, gallops, or rubs. RESPIRATORY: Clear to auscultation. Breath sounds equal bilaterally. No wheezes , rales, or rhonchi. GASTROINTESTINAL: Abdomen soft, non-tender, nondistended. No hepato-splenomegaly , or palpable masses. No guarding. MUSCULOSKELETAL: Right knee clean surgical wound. NEUROLOGICAL: Awake and alert. Cranial nerves II through XII intact. Motor and sensory grossly within normal limits. Normal speech. Results - Labs CBC & Chem 7: 11/26/17 05:30 Laboratory Results - last 24 hr 11/25/17 11/26/17 09:00 05:30 Hgb 11.1 L Hct 34.0 L Blood Type A Positive Antibody Screen Negative - Imaging Impressions Knee X-Ray 11/25/17 12:38 CONCLUSION: Status post total knee arthroplasty in excellent position - Procedures Right total knee arthroplasty using [place] Triathlon prosthesis (uncemented) on 07/25/2017 Assessment and Plan - Plan 1. Chronic Severe OA status post Right Total knee arthroplasty, Orthopedic surgery following PT, manager hris for discharge, Pain medicine. stable for discharge from Orthopedic surgery. 2. Sick sinus syndrome status post evaluation by Doctor Dangelo Barakat recommended for no Pacemaker needed at this time. had severe bradycardia during surgery, okay to discharge from prescription benefit specialist. 3. Anxiety disorder to continue Home medicines 4. Glaucoma by history, continue Home medicines 5. Gout to continue Home medicines 6. Dementia/Alzheimer's Type stable 7. CKD III his Creatinine previous to admission 1.82 with GFR 35 DVT prophylaxis as per Surgical team. Code Status: Full code. Discussed Condition With: Patient and nurse. Discharge Planning: As per Attending Physician. Okay to discharge from Medicine standpoint.
[2017-11-26] MEDS: Senna/Docusate Sodium 8.6/50 MG Tablet PO SCH ×2 (08:29→21:33)
[2017-11-26] MEDS: Ferrous Sulfate 325 MG Tablet PO SCH (08:29)
[2017-11-26] MEDS: Calcium Carbonate 500 MG Tablet PO SCH (08:29)
[2017-11-26] MEDS: Sodium Chloride 0.9% 2 ML Flush BID IV.FLUSH SCH ×2 (08:30→21:33)
--- NOTE | 2017-11-26 08:32 | P.PNCA ---
Subjective Interval history: Patient denies any chest pain, pressure, palpitations, dizziness, edema or shortness of breath. Medications and Allergies Allergies Allergy/AdvReac Type Severity Reaction Status Date / Time gabapentin AdvReac Confusion Verified 11/11/17 12:07 memantine [From Namenda] AdvReac Confusion Verified 11/25/17 08:44 NSAIDS (Non-Steroidal AdvReac Bleeding Verified 11/25/17 09:01 Anti-Inflamma Home Medications Medication Instructions Recorded Confirmed Type albuterol sulfate [ProAir 2 puff INHALATION Q4H PRN 11/11/17 11/25/17 History RespiClick] alprazolam 0.5 mg PO TID PRN 11/11/17 11/25/17 History ascorbic acid (vitamin C) [Vitamin 100 mg PO DAILY 11/11/17 11/25/17 History C] atorvastatin 20 mg PO DAILY 11/11/17 11/25/17 History brinzolamide [Azopt] 1 drp OPHTHALMIC (EYE) BID 11/11/17 11/25/17 History calcium carbonate [Calcium 500] 500 mg PO DAILY 11/11/17 11/25/17 History cetirizine [Zyrtec] 10 mg PO DAILY 11/11/17 11/25/17 History donepezil 5 mg PO BID 11/11/17 11/25/17 History ferrous sulfate 325 mg PO DAILY 11/11/17 11/25/17 History fluticasone furoate 1 inh INHALATION BID PRN 11/11/17 11/25/17 History guaifenesin [Mucinex] 1,200 mg PO DAILY PRN 11/11/17 11/25/17 History hydrocodone-acetaminophen 1 tab PO Q4-6H PRN 11/11/17 11/25/17 History magnesium oxide 500 mg PO DAILY 11/11/17 11/25/17 History omega [id number]-fish oil [Fish Oil] 1 cap PO DAILY 11/11/17 11/25/17 History pantoprazole 40 mg PO DAILY 11/11/17 11/25/17 History polyethylene glycol 3350 [Miralax] 17 g PO EVERY OTHER DAY 11/11/17 11/25/17 History betaxolol 2 drp OPHTHALMIC (EYE) BID 11/25/17 11/25/17 History Active Medications: Active Medications Acetaminophen (Tylenol) 650 mg PO Q6H PRN PRN Reason: Pain Less Than 3 On Scale Hydrocodone Bitart/Acetaminophen ([place] 7.5/325) 2 tab PO Q6H PRN PRN Reason: PAIN SCALE 7 TO 10 SEVERE Hydrocodone Bitart/Acetaminophen ([place] 7.5/325) 1 tab PO Q4H PRN PRN Reason: PAIN SCALE 4 TO 6 MODERATE Al Hydrox/Mg Hydrox/Simethicone (Mag-Al Plus Susp Liq) 30 ml PO Q6H PRN PRN Reason: INDIGESTION Al Hydroxide/Mg Hydroxide (Milk Of Magnesia Liq) 30 ml PO BID PRN PRN Reason: Mild Constipation Alprazolam (Xanax) 0.5 mg PO TID PRN PRN Reason: AGITATION Last Admin: 11/26/17 07:19 Dose: 0.5 mg Aspirin (Aspirin Chew) 81 mg PO BID [facility] Last Admin: 11/25/17 20:16 Dose: 81 mg Atorvastatin Calcium (Lipitor) 20 mg PO DAILY [facility] Betaxolol HCl (Betaxolol 0.5% Opth Drops) 2 drop EACH EYE BID [facility] Last Admin: 11/26/17 03:50 Dose: Not Given Bisacodyl (Dulcolax Supp) 10 mg RECTAL DAILY PRN PRN Reason: SEVERE CONSITIPATION Calcium Carbonate (Oscal) 500 mg PO DAILY [facility] Cetirizine HCl (Zyrtec) 10 mg PO DAILY [facility] Chlorhexidine Gluconate (Hibiclens 4% Topical) 1 applicatio TOPICAL ONCE [facility] Stop: 11/29/17 08:29 Diphenhydramine HCl (Benadryl) 25 mg PO Q6H PRN PRN Reason: ITCHING Donepezil HCl (Aricept) 5 mg PO BID [facility] Last Admin: 11/25/17 20:17 Dose: Not Given Ferrous Sulfate (Ferosul) 325 mg PO DAILY [facility] Guaifenesin (Mucinex Er) 1,200 mg PO DAILY PRN PRN Reason: PHLEGM BUILDUP Lactated Ringer's (Lr 1000 Ml Inj) 1,000 mls @ 30 mls/hr IV.CONT .Q24H ONE Stop: 11/26/17 08:29 Last Infusion: 11/25/17 12:53 Dose: Infused Lactated Ringer's (Lr 1000 Ml Inj) 1,000 mls @ 80 mls/hr IV.CONT .[id number] [facility] Last Admin: 11/26/17 07:47 Dose: 80 mls/hr Ketorolac Tromethamine (Toradol Inj) 15 mg IV.PUSH Q6H [facility] Stop: 11/27/17 09:01 Last Admin: 11/26/17 07:46 Dose: Not Given Lactulose (Lactulose Liq) 30 ml PO DAILY PRN PRN Reason: SEVERE CONSITIPATION Miscellaneous Information ([facility]) 1 each OTHER UNSCH PRN PRN Reason: SEE LABEL COMMENTS Stop: 11/26/17 12:54 Morphine Sulfate (Morphine Inj) 2 mg IV.PUSH Q3H PRN PRN Reason: BREAKTHROUGH PAIN Ondansetron HCl (Zofran Odt) 4 mg PO Q6H PRN PRN Reason: NAUSEA OR VOMITING Pantoprazole Sodium (Protonix) 40 mg PO DAILY [facility] Patient Own Medication: Ascorbic Acid 100mg By Mouth Daily. 0 each PO DAILY [facility] Patient Own Medication: Azopt ( Brinzolamide) 1% Opthalmic Suspension 0 each EACH EYE BID [facility] Patient Own Medication: Arnuity Ellipta (Fluticasone Furoate) 50mcg/Actuation 0 each INH BID PRN PRN Reason: SEE LABEL COMMENTS Patient Own Medication: Magnesium Oxide 500mg Tablet 0 each PO DAILY [facility] Patient Own Medication: Proair Respiclick ( Albuterol Sulfate) 90mcg/Act Aerosol Powder 0 each INH Q4H PRN PRN Reason: SHORTNESS OF BREATH Polyethylene Glycol (Miralax) 17 gm PO EVERY OTHER DAY [facility] Senna/Docusate Sodium (Hallie-Colace) 1 tab PO BID [facility] Last Admin: 11/25/17 20:18 Dose: 1 tab Sennosides (Senokot) 17.2 mg PO BID PRN PRN Reason: Moderate Constipation Sodium Chloride (Ns Flush) 2 ml IV.FLUSH BID [facility] Last Admin: 11/25/17 20:19 Dose: 2 ml Sodium Chloride (Ns Flush) 2 ml IV.FLUSH UNSCH PRN PRN Reason: FLUSH AFTER USING IV ACCESS Zolpidem Tartrate (Ambien) 5 mg PO HS PRN PRN Reason: INSOMNIA Physical Exam Vital signs: Vital Signs 11/25/17 09:02 11/25/17 09:38 11/25/17 09:50 Temperature 97.9 F Pulse Rate 44 L 34 L 34 L Respiratory Rate 20 Blood Pressure 154/64 H 169/74 H Pulse Oximetry 98 93 L 11/25/17 12:54 11/25/17 13:00 11/25/17 13:05 Temperature 96 F L Pulse Rate 103 H 105 H Respiratory Rate 14 18 Blood Pressure 176/86 H 177/88 H Pulse Oximetry 100 99 99 11/25/17 13:15 11/25/17 13:30 11/25/17 13:45 Temperature Pulse Rate 85 85 74 Respiratory Rate 10 L 12 22 Blood Pressure 176/85 H 162/79 H 161/82 H Pulse Oximetry 99 99 98 11/25/17 14:00 11/25/17 14:15 11/25/17 14:30 Temperature Pulse Rate 66 69 66 Respiratory Rate 18 17 19 Blood Pressure 167/89 H 168/84 H 158/86 H Pulse Oximetry 99 96 97 11/25/17 15:30 11/25/17 16:00 11/25/17 20:00 Temperature 97.5 F L 97.9 F Pulse Rate 60 53 L 67 Respiratory Rate 24 18 18 Blood Pressure 167/77 H 165/73 H 144/75 H Pulse Oximetry 97 97 97 11/26/17 00:00 Temperature 97.4 F L Pulse Rate 62 Respiratory Rate 17 Blood Pressure 150/65 H Pulse Oximetry 95 Intake & Output 11/25/17 11/26/17 11/26/17 18:59 06:59 18:59 Intake Total 2737.02 / 2737.02 1200 / 1200 Output Total 460 / 460 200 / 200 Balance 2277.02 / 2277.02 1000 / 1000 Weight 70.2 kg 92 kg Intake: IV 1257.02 / 1257.02 1200 / 1200 LR 1000 mL Inj 1,000 ML @ 80 1000 / 1000 1000 / 1000 mls/hr IV.CONT .[id number] [facility]OU[facility] Rx# :[id number] Cyklokapron Inj 702 MG In NS 107.02 / 107.02 Inj 100 ML @ 200 mls/hr IV.SIG ONCE [facility] Rx#:[id number] Ancef 2 GM Premix Inj 2 gm In 50 / 50 50 ml @ 100 mls/hr IV.SIG [employer] DOUG Rx#:[id number] Ancef Inj 1,000 MG In NS Inj 100 / 100 200 / 200 100 ML @ 200 mls/hr IV.SIG Q6H [facility] Rx#:[id number] Oral 480 / 480 Anesthesia Amount 1000 / 1000 Output: Urine 0 / 0 Estimated Blood Loss 250 / 250 Wound Drainage 210 / 210 200 / 200 # 1 Right Knee Hemovac 210 / 210 200 / 200 Other: # Voids 2 Date of Last Bowel Movement 11/24/17 11/24/17 Weight On Admission 70.2 kg - Constitutional no acute distress - Routine HEENT Exam Head: Present: normocephalic Eye: Present: PERRL ENT: Present: mucous membranes moist - Routine Neck Exam Present: full ROM - Routine Respiratory Exam Present: CTA bilaterally - Routine Cardiovascular Exam Present: S1, S2. Absent: murmur, gallop, rubs - Routine Abdominal Exam Present: normoactive bowel sounds - Routine Extremities Exam Present: full ROM, pulses intact, normal capillary refill. Absent: cyanosis, clubbing, edema Comments: Limited range of motion on the right leg due to postop total right knee. - Routine Skin Exam Present: intact - Routine Neurological Exam Present: oriented X3 - Detailed Neurological Exam: Coma Scale Eye Opening: Spontaneous Verbal Response: Oriented Motor Response: Obey commands Export Coma Scale Total: 15 - Routine Psychiatric Exam Present: normal affect Results 11/26/17 05:30 CBC 11/26/17 Range/Units 05:30 Hgb 11.1 L (13.0-17.0) gm/dL Hct 34.0 L (39.0-51.0) % Intake and Output 11/25/17 11/26/17 11/26/17 22:59 06:59 14:59 Intake Total 580 / 580 1200 / 1200 Output Total 210 / 210 200 / 200 Balance 370 / 370 1000 / 1000 Intake: IV 100 / 100 1200 / 1200 LR 1000 mL Inj 1,000 ML @ 80 1000 / 1000 mls/hr IV.CONT .[id number] [facility] Rx# :[id number] Ancef Inj 1,000 MG In NS Inj 100 / 100 200 / 200 100 ML @ 200 mls/hr IV.SIG Q6H [facility] Rx#:[id number] Oral 480 / 480 Output: Urine 0 / 0 Wound Drainage 210 / 210 200 / 200 # 1 Right Knee Hemovac 210 / 210 200 / 200 Other: # Voids 2 Date of Last Bowel Movement 11/24/17 Weight 70.2 kg 92 kg - Imaging and Cardiology Imaging: Impressions Knee X-Ray 11/25/17 12:38 CONCLUSION: Status post total knee arthroplasty in excellent position Assessment and Plan - Assessment (1) Bradycardia Code(s): R00.1 - Bradycardia, unspecified Status: Acute (2) Status post total right knee replacement not using cement Code(s): Z96.651 - Presence of right artificial knee joint Status: Acute - Plan Patient is in sinus rhythm on the monitor currently, continue with current cardiac treatment plan. There is no indication for pacemaker placement at this time, we will continue to monitor. Okay to discharge home today from cardiac standpoint. Will follow up with patient in our office post discharge. Patient was seen and evaluated by Dr. Barakat who participated in care, management and decision-making. - Attending Attestation Patient seen and examined. I reviewed and agree with the evaluation and plan as presented. No significant bradycardia. OK to discharge home from cardiac standpoint. Will schedule f/u in our office after discharge.
[2017-11-26] MEDS ORDERED: [UNRECOGNIZED DRUG - OTHER] PO SCH (09:00)
[2017-11-26] MEDS ORDERED: ASCORBIC ACID 100 MG PO SCH (09:00)
[2017-11-26] MEDS ORDERED: Non-Formulary Drug (Omega 3-Dha-Epa-Fish Oil [Fish Oil] 1 CAP) PO SCH (09:00)
[2017-11-27] MEDS: Ketorolac Inj 30 MG/ML (IVP) Vial IV.PUSH SCH ×2 (04:34→09:31)
--- NOTE | 2017-11-27 06:07 | P.PNOP ---
Subjective Interval history: Postop day #2 He is doing relatively well. Today, he has minimal complaints. Physical therapy notes that he tends to get up by himself without assistance. Nursing reports that he tends to get up by himself without assistance. He did have a fall to his buttocks but did not have an injury. Physical therapy reports that the ambulation distance was 40 feet. The range of motion was -4 extension to 84 of flexion. Physical Exam Vital signs: Vital Signs 11/26/17 08:00 11/26/17 13:55 11/26/17 15:58 Temperature 98.9 F 98.3 F Pulse Rate 62 60 Respiratory Rate 17 18 18 Blood Pressure 125/58 L 128/66 Pulse Oximetry 98 98 11/26/17 16:00 11/26/17 20:00 11/26/17 22:03 Temperature 99.0 F 98.7 F Pulse Rate 81 73 Respiratory Rate 18 18 18 Blood Pressure 163/74 H 145/64 H Pulse Oximetry 99 97 11/27/17 00:00 11/27/17 00:20 11/27/17 04:00 Temperature 97.6 F Pulse Rate 91 H Respiratory Rate 18 19 17 Blood Pressure 137/60 Pulse Oximetry 95 Intake & Output 11/26/17 11/26/17 11/27/17 06:59 18:59 06:59 Intake Total 1200 / 1200 480 / 480 Output Total 200 / 200 180 / 180 Balance 1000 / 1000 300 / 300 Weight 92 kg Intake: IV 1200 / 1200 LR 1000 mL Inj 1,000 ML @ 80 1000 / 1000 mls/hr IV.CONT .[id number] [facility]OU[facility] Rx# :[id number] Ancef Inj 1,000 MG In NS Inj 200 / 200 100 ML @ 200 mls/hr IV.SIG Q6H [facility] Rx#:[id number] Oral 480 / 480 Output: Urine 150 / 150 Wound Drainage 200 / 200 30 / 30 # 1 Right Knee Hemovac 200 / 200 30 / 30 Other: # Voids 2 1 Date of Last Bowel Movement 11/24/17 11/24/17 11/26/17 # Bowel Movements 1 Narrative: He is resting comfortably, supine in bed, with the knee extended. The dressing is dry and intact. There is no erythema. There is no induration. The neurovascular status is intact. Results - Labs CBC & Chem 7: 11/26/17 05:30 Laboratory Results - last 24 hr 11/26/17 05:30 Hgb 11.1 L Hct 34.0 L - Procedures Right total knee arthroplasty using [place] Triathlon prosthesis (uncemented) on 07/25/2017 Assessment and Plan - Ortho Post Op Day # 2 - Problem List (1) Status post total right knee replacement not using cement Code(s): Z96.651 - Presence of right artificial knee joint Status: Acute - Assessment and Plan Condition: Good. Orthopedically stable. DVT prophylaxis: TEDs, aspirin, sequentials. Discharge plans: Probable inpatient rehabilitation at [facility]. An appointment was scheduled through the office. Prescriptions: [place] 7.5/325; Patient is having significant pain caused by a total knee arthroplasty which will last more than 3 days. Trial of Tylenol has not helped. I believe that it is medically necessary to treat patients pain because it is affecting patients ability to participate in postoperative rehabilitation and perform activities of daily living in a comfortable and efficient manner.
--- NOTE | 2017-11-27 06:59 | P.DS ---
Date of admission: 11/25/17 12:46 Primary care physician: Timo Dodson MD Attending physician on discharge: David Waite Anticipated date of discharge: 11/27/17 Brief History from admission: This 87-year-old man has had long-standing right knee pain secondary to osteoarthritis that has been nonresponsive to conservative measures. The patient was admitted for an elective total knee arthroplasty on the right. His physical findings showed genuine varum with crepitation on motion and an antalgic gait. His radiographic findings showed severe osteoarthritis in the patellofemoral joint and some also in the medial and lateral compartments. DS: Diagnosis - Discharge Diagnosis (1) Status post total right knee replacement not using cement Status: Acute Diagnosis: Principal (2) Primary osteoarthritis of right knee Status: Chronic Diagnosis: Principal (3) Bradycardia Status: Chronic Diagnosis: Secondary (4) Postoperative urinary retention Status: Deleted Diagnosis: Secondary DS: Summary Hospital Course: The patient was admitted as noted above. The above noted operative procedure was carried out that day. Preoperatively prophylactic antibiotics were administered Ancef according to protocol. These were continued postoperatively. The patient also received tranexamic acid to help with hemostasis according to protocol. In the postanesthesia care unit mechanical methods of DVT prophylaxis in the form of JAMA stockings and sequentials were initiated. Physical therapy was initiated on the day of surgery. On postoperative day #1 physical therapy continued. The patient had urinary retention transiently but this resolved. DVT prophylaxis with aspirin 81 mg was initiated at this time. The patient continued physical therapy throughout the hospitalization. The distance walked and range of motion improved throughout the hospitalization. Nursing and physical therapy both reported that the patient would get up from the bed without assistance and walk without assistance. On one occasion he fell on his buttocks without injury. The patient was discharged on postoperative day 2 with the disposition being to inpatient rehabilitation at [facility]. An appointment for follow-up was made prior to admission. - Time Spent with Patient Total time spent providing and/or coordinating discharge services: Greater than 30 minutes - Quality: VTE Deep Vein Thrombosis/Pulmonary Embolism Present on Admission: No Exam Vital signs: Vital Signs 11/26/17 08:00 11/26/17 13:55 11/26/17 15:58 Temperature 98.9 F 98.3 F Pulse Rate 62 60 Respiratory Rate 17 18 18 Blood Pressure 125/58 L 128/66 Pulse Oximetry 98 98 11/26/17 16:00 11/26/17 20:00 11/26/17 22:03 Temperature 99.0 F 98.7 F Pulse Rate 81 73 Respiratory Rate 18 18 18 Blood Pressure 163/74 H 145/64 H Pulse Oximetry 99 97 11/27/17 00:00 11/27/17 00:20 11/27/17 04:00 Temperature 97.6 F 97.9 F Pulse Rate 91 H 61 Respiratory Rate 18 19 18 Blood Pressure 137/60 139/64 Pulse Oximetry 95 95 Intake & Output 11/26/17 11/26/17 11/27/17 06:59 18:59 06:59 Intake Total 1200 / 1200 480 / 480 240 / 240 Output Total 200 / 200 180 / 180 1550 / 1550 Balance 1000 / 1000 300 / 300 -1310 / -1310 Weight 92 kg 70.2 kg Intake: IV 1200 / 1200 LR 1000 mL Inj 1,000 ML @ 80 1000 / 1000 mls/hr IV.CONT .[id number] DOUG Rx# :[id number] Ancef Inj 1,000 MG In NS Inj 200 / 200 100 ML @ 200 mls/hr IV.SIG Q6H DOUG Rx#:[id number] Oral 480 / 480 240 / 240 Output: Urine 150 / 150 1550 / 1550 Wound Drainage 200 / 200 30 / 30 # 1 Right Knee Hemovac 200 / 200 30 / 30 Other: # Voids 2 1 Date of Last Bowel Movement 11/24/17 11/24/17 11/26/17 # Bowel Movements 1 Narrative: He is resting comfortably, supine in bed. The dressing is dry and intact. There is no sign of infection. His neurovascular status is intact. Results Procedures completed during hospitalization: Right total knee arthroplasty using [place] Triathlon prosthesis (uncemented) on 07/25/2017 Completed studies during hospitalization: Knee X-Ray 11/25/17 12:38 CONCLUSION: Status post total knee arthroplasty in excellent position - Impressions ITS Impressions Knee X-Ray 11/25/17 12:38 CONCLUSION: Status post total knee arthroplasty in excellent position Discharge Plan - Discharge Disposition Patient Disposition: 62 Rehab Inpatient - Discharge Condition Condition: Stable - Discharge Order Discharge Orders: Discharge Order (Routine); Ordered 11/27/17 Ordered By: David Waite - Discharge Details Anticipated Discharge Date: 11/26/17 - Physicians Team Primary Care Provider: Timo Dodson Attending Provider: David Waite Other Providers: Dangelo Barakat MD ; Jerman De Santiago MD - Rxs /Orders / Referrals /Forms Prescriptions: Continue albuterol sulfate [ProAir RespiClick] 90 mcg/actuation Aerosol Powdr Breath Activated 2 puff INHALATION Q4H PRN (Reason: Shortness Of Breath) alprazolam 0.5 mg Tablet 0.5 mg PO TID PRN (Reason: Agitation) ascorbic acid (vitamin C) [Vitamin C] 100 mg Tablet 100 mg PO DAILY atorvastatin 20 mg Tablet 20 mg PO DAILY betaxolol 0.5 % Drops 2 drp OPHTHALMIC (EYE) BID brinzolamide [Azopt] 1 % Drops,Suspension 1 drp OPHTHALMIC (EYE) BID calcium carbonate [Calcium 500] 500 mg calcium (1,250 mg) Tablet 500 mg PO DAILY cetirizine [Zyrtec] 10 mg Capsule 10 mg PO DAILY donepezil 5 mg Tablet 5 mg PO BID ferrous sulfate 325 mg (65 mg iron) Tablet 325 mg PO DAILY fluticasone furoate 50 mcg/actuation Blister With Device 1 inh Inhalation BID PRN (Reason: phlegm buildup) guaifenesin [Mucinex] 1,200 mg Tablet Extended Release 12hr 1,200 mg PO DAILY PRN (Reason: phlegm buildup) hydrocodone-acetaminophen 5-325 mg Tablet 1 tab PO Q4-6H PRN (Reason: Pain) magnesium oxide 500 mg Capsule 500 mg PO DAILY omega 6-[id number]-fish oil [Fish Oil] 1,000 mg (120 mg-180 mg) Capsule 1 cap PO DAILY pantoprazole 40 mg Tablet,Delayed Release (Dr/Ec) 40 mg PO DAILY polyethylene glycol 3350 [Miralax] 17 gram Powder In Packet 17 g PO EVERY OTHER DAY Referrals: David Waite MD [Physician] - See Instructions Timo Dodson MD [Primary Care Provider] - See Instructions - Discharge Instructions Patient Printed Instructions: How to Use an Incentive Spirometer (DC), Fall Prevention (DC), Knee Replacement (DC), Deep Vein Thrombosis Prevention (DC) Additional Instructions: REGULAR DIET TOLERATED SHOWER ONLY NO DRIVING WEIGHT BEARING TOLERATED KEEP DRESSING CLEAN, DRY, AND INTACT CLEAN, DRY, DAILY DRESSING CHANGE TAKE MEDICATION PRESCRIBED FOLLOW UP WITH MD INSTRUCTED - Post Discharge Care Plan Care Plan Goals: Discharge Care Plan Goals for Total Knee Replacement You have undergone knee replacement surgery. Your doctor replaced your painful joint with an artificial joint to relieve pain and restore movement. Here are some goals to help you heal well. Directions to Meet your Goals: 1. Activity & Exercises: * Take pain medicine as directed by your doctor. * Sit in chairs with arms. The arms make it easier for you to stand up or sit down. * Dont sit for more than 30 to 45 minutes at one time. * Nap if you are tired, but dont stay in bed all day. * Sleep with a pillow under your ankle, not your knee. Be sure to change the position of your leg during the night. * Wear the support stockings you were given in the hospital as directed by your surgeon. 2. Prevent Falls/Injury: The molina to successful recovery is movement with walking and exercising your knee as directed by your doctor. * Arrange your household to keep the items you need handy. Keep everything else out of the way. * Remove items that may cause you to fall, such as throw rugs and electrical cords. * Use nonslip bath mats, grab bars, an elevated toilet seat, and a shower chair in your bathroom * Sit on a shower stool or chair when you shower to keep from falling. * Until your balance, flexibility, and strength improve, use a cane, crutches, a walker, handrails, or someone to help you. * Keep your hands free by using a backpack, kareem pack, apron, or pockets to carry things * Walk up and down stairs with support. Try one step at a time. Use the railing if possible. * Dont drive until your doctor says its OK. * Dont drive while you are taking opioid pain medicine. 3. Precautions: * Prevent infection. Any infection will need to be treated immediately. Call your doctor right away if you think you might have an infection. * Tell your dentist that you have an artificial joint and take antibiotics as prescribed before any dental work. * Tell all your healthcare providers about your artificial joint before any medical procedure. * Maintain a healthy weight. Get help to lose any extra pounds. Added body weight puts stress on the knee. * Your medications may include blood-thinning medicine to prevent blood clots or antibiotics to prevent infection-prevent any falls or cuts 4. Incision Care: * Prevent infection by washing your hands often. If an infection occurs, it will need to be treated right away. * Call your doctor right away if you think you may have an infection. Symptoms include a fever or an incision that leaks white, green, or yellow fluid. * Don't soak your incision in water until your doctor says its OK. This means no hot tubs, bathtubs, or swimming pools. * Follow your doctor's instructions for changing the dressing. * Dont rub the incision, or apply creams or lotions to it. * If you notice any redness or drainage around the bandage site, contact your surgeon's office immediately. 5. Follow-Up: Do Not miss your follow-up appointment. Keep up with all your appointments and yearly check ups When to call your doctor: Call your doctor right away if you have: Fever of 100.4F (38C) or higher, or as directed by your doctor Shaking chills Stiffness, or inability to move the knee Increased swelling in your leg Increased redness, tenderness, or swelling in or around the knee incision Drainage from the knee incision Increased knee pain Call 911: Call 911 right away if you have: Chest pain Shortness of breath Any pain or tenderness in your calf
[2017-11-27 07:23] VITALS: O2SAT 96
[2017-11-27 07:41] LABS: Hematocrit 31.7 % (39.0-51.0); Hemoglobin 10.5 gm/dL (13.0-17.0)
[2017-11-27] MEDS ORDERED: Polyethylene Glycol 3350 17 GM Packet PO SCH (09:00)
[2017-11-27] MEDS: Calcium Carbonate 500 MG Tablet PO SCH (09:30)
[2017-11-27] MEDS: Senna/Docusate Sodium 8.6/50 MG Tablet PO SCH (09:30)
[2017-11-27] MEDS: Ferrous Sulfate 325 MG Tablet PO SCH (09:30)
[2017-11-27] MEDS: Sodium Chloride 0.9% 2 ML Flush BID IV.FLUSH SCH (09:31)
[2017-11-27] MEDS: OPTH EACH EYE SCH (09:32)
[2017-11-27] MEDS: BETAXOLOL 0.5% EACH EYE SCH (09:32)
[2017-11-27] MEDS: ALPRAZolam 0.5 MG Tablet PO PRN (09:37)
--- NOTE | 2017-11-27 11:29 | P.PN ---
Subjective Interval history: This is a pleasant 87 y/o Male who has history of Bradycardia, his baseline is 50 per min. already cleared by adult specialist for procedure. as we know he has Anxiety disorder, Dementia, Cataracts, Cervical stenosis, BPH, Iron deficiency anemia, Arthritis Peripheral Neuropathy hands and feet. today status post Right total Knee arthroplasty, his and nurse by his side, no complaint. 11/26: Seen in his bedroom, standing shaving himself, already recommended for discharge by Orthopedic surgery and Cardiology, no barriers from Medicine to discharge home. 11/27: Stable in his bedroom, discussed with nurse and with patient, no nausea, vomit or diarrhea, CIR following for inpatient rehabilitation he had a fall last night. Physical Exam Vital signs: Vital Signs 11/26/17 13:55 11/26/17 15:58 11/26/17 16:00 Temperature 98.3 F 99.0 F Pulse Rate 60 81 Respiratory Rate 18 18 18 Blood Pressure 128/66 163/74 H Pulse Oximetry 98 99 11/26/17 20:00 11/26/17 22:03 11/27/17 00:00 Temperature 98.7 F 97.6 F Pulse Rate 73 91 H Respiratory Rate 18 18 18 Blood Pressure 145/64 H 137/60 Pulse Oximetry 97 95 11/27/17 00:20 11/27/17 04:00 11/27/17 04:15 Temperature 97.9 F 97.9 F Pulse Rate 61 61 Respiratory Rate 19 18 18 Blood Pressure 139/64 139/64 Pulse Oximetry 95 95 11/27/17 05:04 11/27/17 05:15 11/27/17 06:15 Temperature 97.2 F L 98.1 F Pulse Rate 74 61 Respiratory Rate 18 18 18 Blood Pressure 136/64 136/58 L Pulse Oximetry 97 96 11/27/17 07:15 11/27/17 08:00 Temperature 98.2 F 98.4 F Pulse Rate 60 57 L Respiratory Rate 14 14 Blood Pressure 123/60 127/66 Pulse Oximetry 98 96 Intake & Output 11/26/17 11/27/17 11/27/17 18:59 06:59 18:59 Intake Total 480 / 480 240 / 240 Output Total 180 / 180 1550 / 1550 Balance 300 / 300 -1310 / -1310 Weight 70.2 kg Intake: Oral 480 / 480 240 / 240 Output: Urine 150 / 150 1550 / 1550 Wound Drainage # 1 Right Knee Hemovac Other: # Voids 1 Date of Last Bowel Movement 11/24/17 11/26/17 11/26/17 # Bowel Movements 1 Narrative: GENERAL: This is a well-nourished, well-developed patient, in no apparent distress. CARDIOVASCULAR: Regular rate and rhythm without murmurs, gallops, or rubs. RESPIRATORY: Clear to auscultation. Breath sounds equal bilaterally. No wheezes , rales, or rhonchi. GASTROINTESTINAL: Abdomen soft, non-tender, nondistended. Normal active bowel sounds MUSCULOSKELETAL: Clean surgical wound. NEURO: Alert & Oriented x4 to person, place, time, situation. Moves all ext x4 Results - Labs CBC & Chem 7: 11/27/17 06:46 Laboratory Results - last 24 hr 11/27/17 06:46 Hgb 10.5 L Hct 31.7 L - Procedures Right total knee arthroplasty using [employer] Triathlon prosthesis (uncemented) on 07/25/2017 Assessment and Plan - Plan 1. Chronic Severe OA status post Right Total knee arthroplasty, Orthopedic surgery following PT, manager fiber for discharge, Pain medicine. stable for discharge from Orthopedic surgery. 2. Sick sinus syndrome status post evaluation by Doctor Dangelo Barakat recommended for no Pacemaker needed at this time. had severe bradycardia during surgery, okay to discharge from adult specialist. 3. Anxiety disorder to continue Home medicines 4. Glaucoma by history, continue Home medicines 5. Gout to continue Home medicines 6. Dementia/Alzheimer's Type stable 7. CKD III his Creatinine previous to admission 1.82 with GFR 35 DVT prophylaxis as per Surgical team. Code Status: Full code. Discussed Condition With: patient and nurse Discharge Planning: As per Attending Physician. Okay to discharge from Medicine standpoint.
[2017-11-27 13:24] VITALS: BP 99/63; PULSE 73; RESP 16; TEMP 98.8
--- NOTE | 2017-11-27 14:06 | P.PNCA ---
Subjective Interval history: Patient sitting up in bed eating breakfast. Denies any chest pain, pressure, palpitations, dizziness, edema or shortness of breath. Does complain of mild discomfort in the right knee status post surgery. Medications and Allergies Allergies Allergy/AdvReac Type Severity Reaction Status Date / Time gabapentin AdvReac Confusion Verified 11/11/17 12:07 memantine [From Namenda] AdvReac Confusion Verified 11/25/17 08:44 NSAIDS (Non-Steroidal AdvReac Bleeding Verified 11/25/17 09:01 Anti-Inflamma Home Medications Medication Instructions Recorded Confirmed Type albuterol sulfate [ProAir 2 puff INHALATION Q4H PRN 11/11/17 11/27/17 History RespiClick] alprazolam 0.5 mg PO TID PRN 11/11/17 11/27/17 History ascorbic acid (vitamin C) [Vitamin 100 mg PO DAILY 11/11/17 11/27/17 History C] atorvastatin 20 mg PO DAILY 11/11/17 11/25/17 History brinzolamide [Azopt] 1 drp OPHTHALMIC (EYE) BID 11/11/17 11/27/17 History calcium carbonate [Calcium 500] 500 mg PO DAILY 11/11/17 11/27/17 History cetirizine [Zyrtec] 10 mg PO DAILY 11/11/17 11/27/17 History donepezil 5 mg PO BID 11/11/17 11/27/17 History ferrous sulfate 325 mg PO DAILY 11/11/17 11/27/17 History fluticasone furoate 1 inh INHALATION BID PRN 11/11/17 11/27/17 History guaifenesin [Mucinex] 1,200 mg PO DAILY PRN 11/11/17 11/27/17 History hydrocodone-acetaminophen 1 tab PO Q4-6H PRN 11/11/17 11/27/17 History magnesium oxide 500 mg PO DAILY 11/11/17 11/27/17 History omega 6-zwa-tiy-fish oil [Fish Oil] 1 cap PO DAILY 11/11/17 11/27/17 History pantoprazole 40 mg PO DAILY 11/11/17 11/27/17 History polyethylene glycol 3350 [Miralax] 17 g PO EVERY OTHER DAY 11/11/17 11/27/17 History betaxolol 2 drp OPHTHALMIC (EYE) BID 11/25/17 11/27/17 History Active Medications: Active Medications Acetaminophen (Tylenol) 650 mg PO Q6H PRN PRN Reason: Pain Less Than 3 On Scale Hydrocodone Bitart/Acetaminophen ([place] 7.5/325) 2 tab PO Q6H PRN PRN Reason: PAIN SCALE 7 TO 10 SEVERE Hydrocodone Bitart/Acetaminophen ([place] 7.5/325) 1 tab PO Q4H PRN PRN Reason: PAIN SCALE 4 TO 6 MODERATE Last Admin: 11/26/17 15:28 Dose: 1 tab Al Hydrox/Mg Hydrox/Simethicone (Mag-Al Plus Susp Liq) 30 ml PO Q6H PRN PRN Reason: INDIGESTION Al Hydroxide/Mg Hydroxide (Milk Of Magnesia Liq) 30 ml PO BID PRN PRN Reason: Mild Constipation Alprazolam (Xanax) 0.5 mg PO TID PRN PRN Reason: AGITATION Last Admin: 11/27/17 09:37 Dose: 0.5 mg Aspirin (Aspirin Chew) 81 mg PO BID [facility] Last Admin: 11/27/17 09:30 Dose: 81 mg Atorvastatin Calcium (Lipitor) 20 mg PO DAILY [facility] Last Admin: 11/27/17 09:30 Dose: 20 mg Betaxolol HCl (Betaxolol 0.5% Opth Drops) 2 drop EACH EYE BID [facility] Last Admin: 11/27/17 09:32 Dose: Not Given Bisacodyl (Dulcolax Supp) 10 mg RECTAL DAILY PRN PRN Reason: SEVERE CONSITIPATION Calcium Carbonate (Oscal) 500 mg PO DAILY [facility] Last Admin: 11/27/17 09:30 Dose: 500 mg Cetirizine HCl (Zyrtec) 10 mg PO DAILY [facility] Last Admin: 11/27/17 09:30 Dose: 10 mg Chlorhexidine Gluconate (Hibiclens 4% Topical) 1 applicatio TOPICAL ONCE [facility] Stop: 11/29/17 08:29 Diphenhydramine HCl (Benadryl) 25 mg PO Q6H PRN PRN Reason: ITCHING Donepezil HCl (Aricept) 5 mg PO BID [facility] Last Admin: 11/27/17 09:30 Dose: 5 mg Ferrous Sulfate (Ferosul) 325 mg PO DAILY [facility] Last Admin: 09/26/18 09:30 Dose: 325 mg Guaifenesin (Mucinex Er) 1,200 mg PO DAILY PRN PRN Reason: PHLEGM BUILDUP Lactated Ringer's (Lr 1000 Ml Inj) 1,000 mls @ 80 mls/hr IV.CONT .[id number] [facility] Last Admin: 11/27/17 07:43 Dose: Not Given Lactulose (Lactulose Liq) 30 ml PO DAILY PRN PRN Reason: SEVERE CONSITIPATION Morphine Sulfate (Morphine Inj) 2 mg IV.PUSH Q3H PRN PRN Reason: BREAKTHROUGH PAIN Ondansetron HCl (Zofran Odt) 4 mg PO Q6H PRN PRN Reason: NAUSEA OR VOMITING Pantoprazole Sodium (Protonix) 40 mg PO DAILY [facility] Last Admin: 11/27/17 09:30 Dose: 40 mg Patient Own Medication: Ascorbic Acid 100mg By Mouth Daily. 0 each PO DAILY [facility] Patient Own Medication: Azopt ( Brinzolamide) 1% Opthalmic Suspension 0 each EACH EYE BID [facility] Patient Own Medication: Arnuity Ellipta (Fluticasone Furoate) 50mcg/Actuation 0 each INH BID PRN PRN Reason: SEE LABEL COMMENTS Patient Own Medication: Magnesium Oxide 500mg Tablet 0 each PO DAILY [facility] Patient Own Medication: Proair Respiclick ( Albuterol Sulfate) 90mcg/Act Aerosol Powder 0 each INH Q4H PRN PRN Reason: SHORTNESS OF BREATH Polyethylene Glycol (Miralax) 17 gm PO EVERY OTHER DAY [facility] Last Admin: 11/27/17 09:31 Dose: Not Given Senna/Docusate Sodium (Hallie-Colace) 1 tab PO BID [facility] Last Admin: 11/27/17 09:30 Dose: 1 tab Sennosides (Senokot) 17.2 mg PO BID PRN PRN Reason: Moderate Constipation Sodium Chloride (Ns Flush) 2 ml IV.FLUSH BID [facility] Last Admin: 11/27/17 09:31 Dose: 2 ml Sodium Chloride (Ns Flush) 2 ml IV.FLUSH UNSCH PRN PRN Reason: FLUSH AFTER USING IV ACCESS Zolpidem Tartrate (Ambien) 5 mg PO HS PRN PRN Reason: INSOMNIA Physical Exam Vital signs: Vital Signs 11/26/17 15:58 11/26/17 16:00 11/26/17 20:00 Temperature 99.0 F 98.7 F Pulse Rate 81 73 Respiratory Rate 18 18 18 Blood Pressure 163/74 H 145/64 H Pulse Oximetry 99 97 11/26/17 22:03 11/27/17 00:00 11/27/17 00:20 Temperature 97.6 F Pulse Rate 91 H Respiratory Rate 18 18 19 Blood Pressure 137/60 Pulse Oximetry 95 11/27/17 04:00 11/27/17 04:15 11/27/17 05:04 Temperature 97.9 F 97.9 F Pulse Rate 61 61 Respiratory Rate 18 18 18 Blood Pressure 139/64 139/64 Pulse Oximetry 95 95 11/27/17 05:15 11/27/17 06:15 11/27/17 07:15 Temperature 97.2 F L 98.1 F 98.2 F Pulse Rate 74 61 60 Respiratory Rate 18 18 14 Blood Pressure 136/64 136/58 L 123/60 Pulse Oximetry 97 96 98 11/27/17 08:00 11/27/17 12:00 Temperature 98.4 F 98.8 F Pulse Rate 57 L 73 Respiratory Rate 14 16 Blood Pressure 127/66 99/63 L Pulse Oximetry 96 96 Intake & Output 11/26/17 11/27/17 11/27/17 18:59 06:59 18:59 Intake Total 480 / 480 240 / 240 Output Total 180 / 180 1550 / 1550 Balance 300 / 300 -1310 / -1310 Weight 70.2 kg Intake: Oral 480 / 480 240 / 240 Output: Urine 150 / 150 1550 / 1550 Wound Drainage 30 / 30 # 1 Right Knee Hemovac 30 / 30 Other: # Voids 1 Date of Last Bowel Movement 11/24/17 11/26/17 11/26/17 # Bowel Movements 1 - Constitutional no acute distress - Routine HEENT Exam Head: Present: normocephalic Eye: Present: PERRL ENT: Present: mucous membranes moist - Routine Neck Exam Present: full ROM - Routine Respiratory Exam Present: CTA bilaterally - Routine Cardiovascular Exam Present: S1, S2 - Routine Abdominal Exam Present: normoactive bowel sounds - Routine Extremities Exam Present: full ROM, pulses intact, normal capillary refill - Routine Skin Exam Present: intact - Routine Neurological Exam Present: oriented X3 - Detailed Neurological Exam: Coma Scale Eye Opening: Spontaneous Verbal Response: Oriented Motor Response: Obey commands [place]ter Coma Scale Total: 15 - Routine Psychiatric Exam Present: normal affect Results 11/27/17 06:46 CBC 11/26/17 11/27/17 Range/Units 05:30 06:46 Hgb 11.1 L 10.5 L (13.0-17.0) gm/dL Hct 34.0 L 31.7 L (39.0-51.0) % Intake and Output 11/26/17 11/27/17 11/27/17 22:59 06:59 14:59 Intake Total 480 / 480 240 / 240 Output Total 180 / 180 1550 / 1550 Balance 300 / 300 -1310 / -1310 Intake: Oral 480 / 480 240 / 240 Output: Urine 150 / 150 1550 / 1550 Wound Drainage # 1 Right Knee Hemovac Other: # Voids 1 Date of Last Bowel Movement 11/26/17 11/26/17 # Bowel Movements 1 Weight 70.2 kg - Imaging and Cardiology Imaging: Impressions Knee X-Ray 11/25/17 12:38 CONCLUSION: Status post total knee arthroplasty in excellent position Assessment and Plan - Assessment (1) Bradycardia Code(s): R00.1 - Bradycardia, unspecified Status: Chronic (2) Status post total right knee replacement not using cement Code(s): Z96.651 - Presence of right artificial knee joint Status: Acute - Plan Patient continues to be in sinus rhythm, continue with current cardiac treatment plan. There is no indication for pacemaker placement at this time. Okay to discharge to rehab as planned today from cardiac standpoint. We will follow up with patient in our office post discharge. Patient was seen and evaluated by Dr. Barakat who participated in care, management and decision-making. - Attending Attestation Patient seen and examined. I reviewed and agree with the evaluation and plan as presented. No significant bradycardia. Discharge to rehab as planned.
== END 2017-11-27 15:13 ==
LOC: HSDC 07:42 → EDSTATUS 10:00 → HSDI 12:46 → N06 16:16
PROVIDERS: ADMIT Orthopaedic Surgery; ATTEND Orthopaedic Surgery